=== PATIENT | female | born 2000 | race Caucasian/White ===

== ENCOUNTER 2019-04-30 10:46 | Emergency (ER) | payer SELFPAY ==
[2019-04-30 10:50] VITALS: BP 164/96; PULSE 105; RESP 18; TEMP 36.6; O2SAT 98; BMI 37.1
--- NOTE | 2019-04-30 11:01 | ED_ITS ---
Entered by Aminata Daniels, acting as scribe for Apr 30, 2019 10:46 Documented by User: Krysten Scruggs 04/30/19 14:27 HPI - Abdominal Pain General: Chief Complaint: Abdominal Pain Stated Complaint: Right side pain Time Seen by Provider: 04/30/19 11:03 PFS ED PFSH: Statuses (acute, chronic, etc) shown below reflect problem list status as previously entered and may not be historically accurate Medical History (Updated 04/30/19 @ 14:27 by Krysten Scruggs) Cholelithiasis (Acute) Gastroenteritis (Acute) Social History Smoking and tobacco status: current every day smoker Course Vital Signs: Vital signs: Vital Signs Temperature 97.9 F 04/30/19 10:50 Pulse Rate 66 04/30/19 15:12 Respiratory Rate 18 04/30/19 15:12 Blood Pressure 129/90 04/30/19 15:12 Pulse Oximetry 100 04/30/19 15:12 MDM - Abdominal Pain MDM Narrative: Medical decision making narrative: 1423 -the patient is feeling better at this time. Her ultrasound shows gallstones but no evidence of cholecystitis. Her CT scan shows no sign of acute ureteral lithiasis. The patient has no evidence of UTI so I will discharge her home to have her follow- up with her regular doctor but she also understands this could be developing appendicitis or biliary colic that could become worse. She agrees to return should her symptoms change or worsen in any way. Differential Diagnosis: Differential diagnosis abdominal pain: Likely abdominal pain, acute appendicitis, calculus of kidney, constipation, diverticu litis, endometriosis, gastroenteritis, pancreatitis and small bowel obstruction Lab Data: Attestation: I reviewed the patient's lab results. Labs: Lab Results 04/30/19 04/30/19 04/30/19 Range/Units 11:20 11:20 11:25 WBC 7.3 (4.0-10.0) 10^3/ uL RBC 4.86 (4.1-5.3) 10^6/u L Hgb 12.4 (11.5-15.3) g/dL Hct 38.7 (37.0-47.0) % MCV 79.6 L (81-99) fL MCH 25.5 L (28.0-34.0) pg MCHC 32.0 (30.0-36.0) g/dL RDW 13.9 (12.1-15.1) % Plt Count 390 (130-400) 10^3/c mm MPV 11.0 H (7.4-10.4) fL Neut % (Auto) 54.2 % Lymph % (Auto) 36.5 % [place] % (Auto) 6.0 % Eos % (Auto) 2.5 % Baso % (Auto) 0.7 % Neut # (Auto) 4.0 (1.8-7.7) 10^3/u L Lymph # (Auto) 2.7 (0.8-4.8) 10^3/u L [place] # (Auto) 0.4 (0.2-0.9) 10^3/u L Eos # (Auto) 0.2 (0.0-0.8) 10^3/u L Baso # (Auto) 0.1 (0.0-0.1) 10^3/u L Nucleated RBC % (a uto) 0 % Nucleated RBCs # 0.0 /100WBC Sodium 137 (136-145) mmol/L Potassium 4.1 (3.5-5.1) mmol/L Chloride 102 (98-107) mmol/L Carbon Dioxide 24 (22-29) mmol/L Anion Gap 15.1 (5-19) BUN 11 (6-20) mg/dL Creatinine 0.7 (0.5-0.9) mg/dL GFR Calculation 105.6 (90-130) mL/min Glucose 96 (74-109) mg/dL Calcium 9.8 (8.6-10.0) mg/Dl Total Bilirubin 0.2 (0.15-1.2) mg/dL AST 15 (0-32) U/L ALT 16 (0-33) U/L Alkaline Phosphata se 107 H (35-105) IU/L Total Protein 6.8 (6.6-8.7) g/dL Albumin 4.2 (3.5-5.2) g/dL Globulin 2.6 (1.3-4.6) g/dL Lipase 24 (13-60) U/L HCG, Qual Negative (Negative) Urine Color (Yellow) Urine Appearance (CLEAR) Urine pH (5-7) Ur Specific Gravit y (1.005-1.030) Urine Protein (Negative) Urine Glucose (UA) (Normal) Urine Ketones (Negative) Urine Occult Blood (Negative) Urine Nitrate (Negative) Urine Bilirubin (NEGATIVE) Urine Urobilinogen (Negative) mg/dL Ur Leukocyte Karol ase (Negative) Urine RBC (0-2) /hpf Urine WBC (0-5) /hpf Ur Squamous Epith Cells (0-5) Urine Bacteria (NONE) 04/30/19 Range/Units 11:25 WBC (4.0-10.0) 10^3/ uL RBC (4.1-5.3) 10^6/u L Hgb (11.5-15.3) g/dL Hct (37.0-47.0) % MCV (81-99) fL MCH (28.0-34.0) pg MCHC (30.0-36.0) g/dL RDW (12.1-15.1) % Plt Count (130-400) 10^3/c mm MPV (7.4-10.4) fL Neut % (Auto) % Lymph % (Auto) % [place] % (Auto) % Eos % (Auto) % Baso % (Auto) % Neut # (Auto) (1.8-7.7) 10^3/u L Lymph # (Auto) (0.8-4.8) 10^3/u L [place] # (Auto) (0.2-0.9) 10^3/u L Eos # (Auto) (0.0-0.8) 10^3/u L Baso # (Auto) (0.0-0.1) 10^3/u L Nucleated RBC % (a uto) % Nucleated RBCs # /100WBC Sodium (136-145) mmol/L Potassium (3.5-5.1) mmol/L Chloride (98-107) mmol/L Carbon Dioxide (22-29) mmol/L Anion Gap (5-19) BUN (6-20) mg/dL Creatinine (0.5-0.9) mg/dL GFR Calculation (90-130) mL/min Glucose (74-109) mg/dL Calcium (8.6-10.0) mg/Dl Total Bilirubin (0.15-1.2) mg/dL AST (0-32) U/L ALT (0-33) U/L Alkaline Phosphata se (35-105) IU/L Total Protein (6.6-8.7) g/dL Albumin (3.5-5.2) g/dL Globulin (1.3-4.6) g/dL Lipase (13-60) U/L HCG, Qual (Negative) Urine Color Yellow (Yellow) Urine Appearance Hazy A (CLEAR) Urine pH 6.5 (5-7) Ur Specific Gravit y 1.010 (1.005-1.030) Urine Protein Neg (Negative) Urine Glucose (UA) Norm (Normal) Urine Ketones Negative (Negative) Urine Occult Blood 3+ H (Negative) Urine Nitrate Negative (Negative) Urine Bilirubin Neg (NEGATIVE) Urine Urobilinogen Norm (Negative) mg/dL Ur Leukocyte Karol ase Negative (Negative) Urine RBC 15-25 H (0-2) /hpf Urine WBC 0-4 H (0-5) /hpf Ur Squamous Epith Cells 0-4 H (0-5) Urine Bacteria 2+ H (NONE) Imaging Data ^: CT Abd/Pel: Radiologist's impression: [place] [address] CT Scan Report Signed Patient: Judith Daniels Unit #: [id number] : 2000 Age/Sex: 19 / F ADM Date: 04/30/19 Loc: ER Room/Bed: Attending Dr: Ordering Provider/Ordering MD: Jose Alberto Berry DO Date of Service: 04/30/19 Procedure(s): CT kidney stone 52998 Accession Number(s): [id number] Report Number: [id number] WS: [id number] CT ABDOMEN AND PELVIS NONCONTRAST HISTORY: hematuria flank pain TECHNIQUE: Imaging performed through the abdomen and pelvis. Coronal and sagittal reformats are submitted. All CT scans at [facility] use at least one of these dose optimization techniques: automated exposure control; mA and/or kV adjustment per patient size (includes targeted exams where dose is matched to clinical indication); or iterative reconstruction. DLP: 2122.36 mGy.cm COMPARISON: 04/10/2019 Lower thorax: Mild groundglass attenuation at the lung bases with mild improvement since the prior study. Heart size is normal. Small hiatal hernia. Liver: Normal, no mass or intrahepatic dilatation. Gallbladder: Gallbladder is distended with stones. Stones of various density. Mild wall thickening of the gallbladder is probably due to chronic cholecystitis. No edema or pericholecystic fluid. Pancreas: Normal. Spleen: Normal. Adrenal glands: Normal. Right kidney: Normal size with no stones, masses or atrophy. Left kidney: Normal size with no stones, mass or atrophy. Normal aorta. Retroaortic LEFT renal vein. IVC is normal. No free fluid, intraperitoneal air or significant lymphadenopathy. GI tract: Normal appendix. Mild fecal retention with no GI tract obstruction. No wall thickening or inflammatory changes. Abdominal wall: Intact. Pelvis: No free fluid in the pelvis. Uterus is midline and normal size. Both ovaries are slightly prominent as seen on prior examinations also. Probably containing follicles follicles or small cysts. RIGHT ovary is the largest measuring 4.0 x 2.7 cm. Osseous structures: Unremarkable. CT/CT kidney stone [id number] IMPRESSION: 1. Cholelithiasis without evidence for acute cholecystitis. Gallbladder is markedly distended with stones as on the prior study. Mild wall thickening is probably related to chronic cholecystitis. 2. Normal appendix. 3. No renal stone or obstruction. 4. Near complete resolution basilar pneumonitis as compared to 04/10/2019. Dictated By: Iliana Vela DO Signed By: Iliana Vela DO Signed Date/Time: 04/30/19 1334 DD/ 1327 US: Radiologist's impression: [address] [address] Ultrasound Report Signed Patient: Judith Daniels Unit #: [id number] : 2000 Age/Sex: 19 / F ADM Date: 04/30/19 Loc: ER Room/Bed: Attending Dr: Ordering Provider/Ordering MD: Jose Alberto Berry DO Date of Service: 04/30/19 Procedure(s): US gall bladder 88633 Accession Number(s): [id number] Report Number: [id number] WS: [id number] RIGHT UPPER QUADRANT ULTRASOUND HISTORY: cholelithiasis COMPARISON: 04/10/2019 Liver: 19.8 cm in length. Moderate liver enlargement. No bile duct dilatation. Gallbladder: Shadowing from the gallbladder from stones. Patient has known cholelithiasis. There is adjacent gallbladder wall thickening with no edema. The wall thickening may be chronic. CBD: 3.3 mm Pancreas: Not visualized. Right kidney: 10.6 cm in length. Normal echogenicity with no mass or hydronephrosis. Aorta and IVC: Unremarkable. No ascites. US/ gall bladder [id number] IMPRESSION: 1. Patient has known cholelithiasis. Numerous stones in the gallbladder. No secondary findings of acute cholecystitis. 2. No bile duct dilatation. Dictated By: Iliana Vela DO Signed By: Iliana Vela DO Signed Date/Time: 04/30/19 1238 DD/ 1236 Discharge Plan Discharge Patient Disposition: Home, Self-Care Clinical Impression: Abdominal pain Qualifiers: Abdominal location: right upper quadrant Qualified Code(s): R10.11 - Right upper quadrant pain Condition: Stable Prescriptions: No Action No Known Home Medications RF: 0 Discharge Orders: Discharge Order (Routine); Ordered 04/30/19 Ordered By: Krysten Scruggs Referrals: Shanna Poole MD [Primary Care Provider] - Rupert Waters MD [Physician] - 1-3 days Discharge Diet: Advance as tolerated Discharge Activity: Increase activity as tolerated Patient Instructions: Appendicitis (GEN), Cholecystitis (ED), Abdominal Pain (ED) Activity Restrictions/Additional Instructions: Please return to the ER immediately for any of the signs or symptoms listed on your discharge instruction sheets, worsening/changing of your symptoms, you are not getting better as quickly as expected, or for ANY other cause or concerns. Return for any of the signs or symptoms listed on your discharge instruction sheets, your pain returns or your symptoms change/worsen in any way. Return to the ER tomorrow for recheck to rule out appendicitis as a cause of your pain if you are having any pain at all first thing tomorrow morning. Stand Alone Forms: Work/School Release Discharge Date/Time: 04/30/19 15:13 Sign Out Sign Out Data: Patient Sign Out occurred on 04/30/19 at 13:28. Patient's care was discussed, and care was transferred from Jose Alberto Berry DO to Krysten Scruggs. Sign Out Comment: discussed with Dr. Scruggs. 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 Pt states that she was seen in the ED on and was told that she has gallstones. Pt states that she has had increased abdominal pain. Pt states that she has had nausea for 2 days. Pt states that she has had blood in her urine. MD elicited complaint: abdominal pain and flank pain Pertinent past history: other (gallstones) Onset (ago): day(s) (2) Pain scale (0-10): 10 Radiation: R flank Migration to: no migration Exacerbating factors: eating Relieving factors: nothing Associated Symptoms: Reports hematuria and nausea; Denies chills, coffee ground emesis, constipation, GI cramping, diarrhea, dysuria, fever(s), heartburn, hematochezia, hematemesis, melena, syncope and v omiting Review of Systems General: Reports: 10 or more systems reviewed and unremarkable except in HPI and below Const: Denies: fever or chills Card: Denies: syncope GI: Reports: abdominal pain and nausea; Denies: vomiting, vomiting blood, coffee grounds in vomit, heartburn/indigestion, diarrhea, constipation, cramping, blood in stool or black tarry stool : Reports: flank pain and blood in urine; Denies: painful urination PFSH ED PFSH: Statuses (acute, chronic, etc) shown below reflect problem list status as previously entered and may not be historically accurate Medical History (Updated 04/30/19 @ 14:27 by Krysten Scruggs) Cholelithiasis (Acute) Gastroenteritis (Acute) Social History Smoking and tobacco status: current every day smoker Physical Exam Const: COMMON NORMALS: average body habitus, oriented x3 and alert GENERAL APPEARANCE: cooperative, comfortable, well kempt and well developed NUTRITIONAL APPEARANCE: obese ORIENTATION/CONSCIOUSNESS: Yes awake, Yes oriented to person and Yes oriented to place HENMT: COMMON NORMALS: normocephalic, head/scalp atraumatic, EAC's normal, TM's normal bilaterally, external nose normal, moist oral mucous membranes and oropharynx normal HEAD & SCALP: normocephalic and atraumatic NOSE: external nose normal EXTERNAL AUDITORY CANAL: EAC's normal TYMPANIC MEMBRANE: TM's normal bilaterally MOUTH: oral and palatal mucosa normal, lip normal and tongue normal THROAT: posterior oropharynx normal and tonsils normal Eye: COMMON NORMALS: PERRL, EOMs intact bilaterally, conjunctivae normal and no scleral icterus CONJUNCTIVA: Yes conjunctivae normal PUPIL: Yes PERRL Neck/C-Spine: COMMON NORMALS: full ROM, no lymphadenopathy, supple, no meni ngeal signs and thyroid normal THYROID: thyroid normal and asymmetrical Lymph: LYMPHATIC: no lymphadenopathy noted Resp: COMMON NORMALS: normal respiratory effort, no retractions, no use of accessory muscles and clear to auscultation bilaterally AUSCULTATION: clear to auscultation bilaterally Cardio: COMMON NORMALS: regular rate and regular rhythm RATE: regular rate RHYTHM: regular rhythm HEART SOUNDS: no murmurs GI: COMMON NORMALS: normal to inspection, nondistended, normoactive bowel sounds, soft to palpation and no hepatosplenomegaly PALPATION: Yes soft and Yes no hepatosplenomegaly : COMMON NORMALS: Yes no CVA tenderness BLADDER/KIDNEY EXAM: Yes no CVA tenderness Back/Pelvis: COMMON NORMALS: no CVA tenderness LUMBAR SPINE/LOWER BACK: Yes normal to inspection Extremity: COMMON NORMALS: no clubbing, cyanosis or edema, no calf tenderness and no pedal edema Neuro: COMMON NORMALS: oriented x3 SENSORIUM/ORIENTATION: Yes alert, Yes oriented to person and Yes oriented to place MENINGEAL SIGNS: Yes no meningeal signs Psych: APPEARANCE: Yes well kempt Skin: COMMON NORMALS: no rashes or lesions noted and skin turgor normal GENERAL SKIN EXAM: no rashes or lesions noted and turgor normal Course Vital Signs: Vital signs: Vital Signs Temperature 97.9 F 04/30/19 10:50 Pulse Rate 66 04/30/19 15:12 Respiratory Rate 18 04/30/19 15:12 Blood Pressure 129/90 04/30/19 15:12 Pulse Oximetry 100 04/30/19 15:12 MDM - Abdominal Pain Lab Data: Labs: Lab Results 04/30/19 04/30/19 04/30/19 Range/Units 11:20 11:20 11:25 WBC 7.3 (4.0-10.0) 10^3/ uL RBC 4.86 (4.1-5.3) 10^6/u L Hgb 12.4 (11.5-15.3) g/dL Hct 38.7 (37.0-47.0) % MCV 79.6 L (81-99) fL MCH 25.5 L (28.0-34.0) pg MCHC 32.0 (30.0-36.0) g/dL RDW 13.9 (12.1-15.1) % Plt Count 390 (130-400) 10^3/c mm MPV 11.0 H (7.4-10.4) fL Neut % (Auto) 54.2 % Lymph % (Auto) 36.5 % [place] % (Auto) 6.0 % Eos % (Auto) 2.5 % Baso % (Auto) 0.7 % Neut # (Auto) 4.0 (1.8-7.7) 10^3/u L Lymph # (Auto) 2.7 (0.8-4.8) 10^3/u L [place] # (Auto) 0.4 (0.2-0.9) 10^3/u L Eos # (Auto) 0.2 (0.0-0.8) 10^3/u L Baso # (Auto) 0.1 (0.0-0.1) 10^3/u L Nucleated RBC % (a uto) 0 % Nucleated RBCs # 0.0 /100WBC Sodium 137 (136-145) mmol/L Potassium 4.1 (3.5-5.1) mmol/L Chloride 102 (98-107) mmol/L Carbon Dioxide 24 (22-29) mmol/L Anion Gap 15.1 (5-19) BUN 11 (6-20) mg/dL Creatinine 0.7 (0.5-0.9) mg/dL GFR Calculation 105.6 (90-130) mL/min Glucose 96 (74-109) mg/dL Calcium 9.8 (8.6-10.0) mg/Dl Total Bilirubin 0.2 (0.15-1.2) mg/dL AST 15 (0-32) U/L ALT 16 (0-33) U/L Alkaline Phosphata se 107 H (35-105) IU/L Total Protein 6.8 (6.6-8.7) g/dL Albumin 4.2 (3.5-5.2) g/dL Globulin 2.6 (1.3-4.6) g/dL Lipase 24 (13-60) U/L HCG, Qual Negative (Negative) Urine Color (Yellow) Urine Appearance (CLEAR) Urine pH (5-7) Ur Specific Gravit y (1.005-1.030) Urine Protein (Negative) Urine Glucose (UA) (Normal) Urine Ketones (Negative) Urine Occult Blood (Negative) Urine Nitrate (Negative) Urine Bilirubin (NEGATIVE) Urine Urobilinogen (Negative) mg/dL Ur Leukocyte Karol ase (Negative) Urine RBC (0-2) /hpf Urine WBC (0-5) /hpf Ur Squamous Epith Cells (0-5) Urine Bacteria (NONE) 04/30/19 Range/Units 11:25 WBC (4.0-10.0) 10^3/ uL RBC (4.1-5.3) 10^6/u L Hgb (11.5-15.3) g/dL Hct (37.0-47.0) % MCV (81-99) fL MCH (28.0-34.0) pg MCHC (30.0-36.0) g/dL RDW (12.1-15.1) % Plt Count (130-400) 10^3/c mm MPV (7.4-10.4) fL Neut % (Auto) % Lymph % (Auto) % [place] % (Auto) % Eos % (Auto) % Baso % (Auto) % Neut # (Auto) (1.8-7.7) 10^3/u L Lymph # (Auto) (0.8-4.8) 10^3/u L [place] # (Auto) (0.2-0.9) 10^3/u L Eos # (Auto) (0.0-0.8) 10^3/u L Baso # (Auto) (0.0-0.1) 10^3/u L Nucleated RBC % (a uto) % Nucleated RBCs # /100WBC Sodium (136-145) mmol/L Potassium (3.5-5.1) mmol/L Chloride (98-107) mmol/L Carbon Dioxide (22-29) mmol/L Anion Gap (5-19) BUN (6-20) mg/dL Creatinine (0.5-0.9) mg/dL GFR Calculation (90-130) mL/min Glucose (74-109) mg/dL Calcium (8.6-10.0) mg/Dl Total Bilirubin (0.15-1.2) mg/dL AST (0-32) U/L ALT (0-33) U/L Alkaline Phosphata se (35-105) IU/L Total Protein (6.6-8.7) g/dL Albumin (3.5-5.2) g/dL Globulin (1.3-4.6) g/dL Lipase (13-60) U/L HCG, Qual (Negative) Urine Color Yellow (Yellow) Urine Appearance Hazy A (CLEAR) Urine pH 6.5 (5-7) Ur Specific Gravit y 1.010 (1.005-1.030) Urine Protein Neg (Negative) Urine Glucose (UA) Norm (Normal) Urine Ketones Negative (Negative) Urine Occult Blood 3+ H (Negative) Urine Nitrate Negative (Negative) Urine Bilirubin Neg (NEGATIVE) Urine Urobilinogen Norm (Negative) mg/dL Ur Leukocyte Karol ase Negative (Negative) Urine RBC 15-25 H (0-2) /hpf Urine WBC 0-4 H (0-5) /hpf Ur Squamous Epith Cells 0-4 H (0-5) Urine Bacteria 2+ H (NONE) Imaging Data ^: CT Abd/Pel: Radiologist's impression: Abdomen/Pelvis CT [facility] [address] [place] [address] RADIOLOGY REPORT Patient: JUDITH DANIELS Unit #: [id number] : 2000 Age: 19 Sex: F Ordering Provider: Conrado Cobb DO Room/Bed: Location: ER Dictating Doctor: Jae Rivera MD Report Number: [id number] Signed 04/10/19 - CT Abdomen/Pelvis w IV* [id number] FINAL REPORT PROCEDURE INFORMATION: Exam: CT Abdomen And Pelvis With Contrast Exam date and time: 04/10/2019 11:44 AM Age: 19 years old Clinical indication: Abdominal pain; Generalized; Additional info: Abdominal pain all over x 4 days, fever. N/d TECHNIQUE: Imaging protocol: Computed tomography of the abdomen and pelvis with intravenous contrast. Total DLP: 2066.3 mGy-cm Radiation optimization: All CT scans at this facility use at least one of these dose optimization techniques: automated exposure control; mA and/or kV adjustment per patient size (includes targeted exams where dose is matched to clinical indication); or iterative reconstruction. Contrast material: OMNI 300; Contrast volume: 95 ml; Contrast route: ARM; COMPARISON: No relevant prior studies available. FINDINGS: Lungs: Mild left basilar pneumonitis. Liver: Normal. No mass. Gallbladder and bile ducts: Multiple gallstones within the gallbladder. Pancreas: Normal. No ductal dilation. Spleen: Normal. No splenomegaly. Adrenals: Normal. No mass. Kidneys and ureters: Normal. No hydronephrosis. Stomach and bowel: Unremarkable. No obstruction. No mucosal thickening. Appendix: Normal appendix. Intraperitoneal space: Unremarkable. No free air. No significant fluid collection. Vasculature: Unremarkable. No abdominal aortic aneurysm. Lymph nodes: Unremarkable. No enlarged lymph nodes. Bladder: Unremarkable as visualized. Reproductive: Unremarkable as visualized. Bones/joints: Unremarkable. No acute fracture. Soft tissues: Unremarkable. IMPRESSION: 1. Mild left basilar pneumonitis. 2. Multiple gallstones within the gallbladder. Radiation Dose CTDIVOL = (mGy): DLP = 2066.3 (mGy-cm) Signed By: Jae Rivera MD Signed Date: 04/10/19 1520 Select Visit Select Visit Registration Data Registration Problem List ProblemList Vital Signs Vitals Intake and Output I&O Medications Medications Laboratory Laboratory Microbiology Microbiology Reports and Notes Reports/Notes (selected) US: Radiologist's impression: Gallbladder Ultrasound [address] [address] Diagnostic Imaging Report Patient: JUDITH DANIELS Unit#: [id number] : 2000 Age: 19 Sex: F Dictated by: Gabby Lopez MD Location: ER Trans: [facility] Ordering Provider/Ordering MD: Conrado Cobb DO Room/Bed: Report Number: [id number] Signed 04/10/19 US Gallbladder [id number] US Gallbladder [id number] 04/10/2019 3:23 PM REASON FOR EXAM: ABD PAIN FEVER FINDINGS: Pancreas not seen well. Included portions of the body and head of the pancreas are normal echotexture. Patent inferior vena cava. Liver depth measures 20.6 cm. Echotexture the liver is slightly increased suggestive of mild fatty infiltration. The gallbladder contains numerous shadowing calculi. Normal gallbladder wall thickness at 1.9 mm. Normal size extra hepatic bile duct at 5.8 mm. Antegrade portal venous flow. The abdominal aorta is nonaneurysmal. Right kidney measures 10.7 cm in length length, 6.2 cm in depth and 6.2 cm in width with normal echotexture. OPINION: 1. Cholelithiasis. No ultrasound evidence of cholecystitis. 2. Limited exam of the pancreas. 3. Mild fatty infiltration of the liver. Signed by: Gabby Lopez MD on 04/11/2019 8:43 AM WS: [id number] Select Visit Select Visit Registration Data Registration Problem List ProblemList Vital Signs Vitals Intake and Output I&O Medications Medications Laboratory Laboratory Microbiology Microbiology Reports and Notes Reports/Notes (selected) US GALLBLADDER 04/30/19: Radiologist's impression: [place] [address] Ultrasound Report Signed Patient: Luis Enrique Daniels #: [id number] : 2000Acct#:[id number] Age/Sex: 19 / FADM Date: 04/30/19 Loc: ERRoom/Bed: Attending Dr: Ordering Provider/Ordering MD: Jose Alberto Berry DO Date of Service: 04/30/19 Procedure(s): US gall bladder 30431 Accession Number(s): [id number] Report Number: [id number] WS: [id number] RIGHT UPPER QUADRANT ULTRASOUND HISTORY: cholelithiasis COMPARISON: 04/10/2019 Liver: 19.8 cm in length. Moderate liver enlargement. No bile duct dilatation. Gallbladder: Shadowing from the gallbladder from stones. Patient has known cholelithiasis. There is adjacent gallbladder wall thickening with no edema. The wall thickening may be chronic. CBD: 3.3 mm Pancreas: Not visualized. Right kidney: 10.6 cm in length. Normal echogenicity with no mass or hydronephrosis. Aorta and IVC: Unremarkable. No ascites. US/US gall bladder 54078 IMPRESSION: 1. Patient has known cholelithiasis. Numerous stones in the gallbladder. No secondary findings of acute cholecystitis. 2. No bile duct dilatation. Dictated By:Iliana Vela DO Signed By:Iliana Vela DOSigned Date/Time:04/30/19 1238 DD/ 1236 CT Renal Stone 04/30/19: Radiologist's impression: [address] [place] [address] CT Scan Report Signed Patient: Luis Enrique Daniels #: [id number] : 2000Acct#:[id number] Age/Sex: 19 / FADM Date: 04/30/19 Loc: ERRoom/Bed: Attending Dr: Ordering Provider/Ordering MD: Jose Alberto Berry DO Date of Service: 04/30/19 Procedure(s): CT kidney stone 79607 Accession Number(s): [id number] Report Number: [id number] WS: [id number] CT ABDOMEN AND PELVIS NONCONTRAST HISTORY: hematuria flank pain TECHNIQUE: Imaging performed through the abdomen and pelvis. Coronal and sagittal reformats are submitted. All CT scans at [facility] use at least one of these dose optimization techniques: automated exposure control; mA and/or kV adjustment per patient size (includes targeted exams where dose is matched to clinical indication); or iterative reconstruction. DLP: 2122.36 mGy.cm COMPARISON: 04/10/2019 Lower thorax: Mild groundglass attenuation at the lung bases with mild improvement since the prior study. Heart size is normal. Small hiatal hernia. Liver: Normal, no mass or intrahepatic dilatation. Gallbladder: Gallbladder is distended with stones. Stones of various density. Mild wall thickening of the gallbladder is probably due to chronic cholecystitis. No edema or pericholecystic fluid. Pancreas: Normal. Spleen: Normal. Adrenal glands: Normal. Right kidney: Normal size with no stones, masses or atrophy. Left kidney: Normal size with no stones, mass or atrophy. Normal aorta. Retroaortic LEFT renal vein. IVC is normal. No free fluid, intraperitoneal air or significant lymphadenopathy. GI tract: Normal appendix. Mild fecal retention with no GI tract obstruction. No wall thickening or inflammatory changes. Abdominal wall: Intact. Pelvis: No free fluid in the pelvis. Uterus is midline and normal size. Both ovaries are slightly prominent as seen on prior examinations also. Probably containing follicles follicles or small cysts. RIGHT ovary is the largest measuring 4.0 x 2.7 cm. Osseous structures: Unremarkable. CT/CT kidney stone [id number] IMPRESSION: 1. Cholelithiasis without evidence for acute cholecystitis. Gallbladder is markedly distended with stones as on the prior study. Mild wall thickening is probably related to chronic cholecystitis. 2. Normal appendix. 3. No renal stone or obstruction. 4. Near complete resolution basilar pneumonitis as compared to 04/10/2019. Dictated By:Iliana Vela DO Signed By:Iliana Vela DOSigned Date/Time:04/30/19 1334 DD/ 1327 Discharge Plan Discharge Patient Disposition: Home, Self-Care Clinical Impression: Abdominal pain Qualifiers: Abdominal location: right upper quadrant Qualified Code(s): R10.11 - Right upper quadrant pain Condition: Stable Prescriptions: No Action No Known Home Medications RF: 0 Discharge Orders: Discharge Order (Routine); Ordered 04/30/19 Ordered By: Krysten Scruggs Referrals: Shanna Poole MD [Primary Care Provider] - Rupert Waters MD [Physician] - 1-3 days Discharge Diet: Advance as tolerated Discharge Activity: Increase activity as tolerated Patient Instructions: Appendicitis (GEN), Cholecystitis (ED), Abdominal Pain (ED) Activity Restrictions/Additional Instructions: Please return to the ER immediately for any of the signs or symptoms listed on your discharge instruction sheets, worsening/changing of your symptoms, you are not getting better as quickly as expected, or for ANY other cause or concerns. Return for any of the signs or symptoms listed on your discharge instruction sheets, your pain returns or your symptoms change/worsen in any way. Return to the ER tomorrow for recheck to rule out appendicitis as a cause of your pain if you are having any pain at all first thing tomorrow morning. Stand Alone Forms: Work/School Release Discharge Date/Time: 04/30/19 15:13 Sign Out Sign Out Data: Patient Sign Out occurred on 04/30/19 at 13:28. Patient's care was discussed, and care was transferred from Jose Alberto Berry DO to Krysten Scruggs. Sign Out Comment: discussed with Dr. Scruggs. CT and US pending Last updated by Jose Alberto Berry DO at 04/30/19 13:18 Coding Level of Care Code ED Heat Treater Helper for Chg Fwd Exam Problem Focused The documentation recorded by the Jeremiah sun Carmen, accurately reflects the service I personally performed and the decisions made by me, Jose Alberto Berry DO Apr 30, 2019 10:46
[2019-04-30 11:26] VITALS: RESP 20
[2019-04-30] MEDS: morphine 4 mg/mL SDV 1 mL 6 MG IVP (11:26)
[2019-04-30] MEDS: ondansetron 2 mg/ML SDV 2 mL 4 MG IVP (11:26)
[2019-04-30 11:31] LABS: Basophils # 0.1 10^3/uL (0.0-0.1); Basophils % 0.7 %; Eosinophils # 0.2 10^3/uL (0.0-0.8); Eosinophils % 2.5 %; Hematocrit 38.7 % (37.0-47.0); Hemoglobin 12.4 g/dL (11.5-15.3); Lymphocytes # 2.7 10^3/uL (0.8-4.8); Lymphocytes % 36.5 %; Mean Corpuscular Hemoglobin 25.5 pg (28.0-34.0); Mean Corpuscular Volume 79.6 fL (81-99); Monocytes # 0.4 10^3/uL (0.2-0.9); Neutrophils % 54.2 %; Nucleated Red Blood Cells % 0 %; Platelet Count 390 10^3/cmm (130-400); Red Blood Count 4.86 10^6/uL (4.1-5.3); Red Cell Distribution Width 13.9 % (12.1-15.1); White Blood Count 7.3 10^3/uL (4.0-10.0)
[2019-04-30] MEDS: sodium chloride 0.9% 1,000 ML 999 ML IV (11:33)
[2019-04-30 11:40] LABS: Add Urine Microscopic? YES; Bilirubin Urine Neg (NEGATIVE); Blood Urine 3+ (Negative); Glucose Urine UA Norm (Normal); Ketones Urine Negative (Negative); Leukocyte Esterase Urine Negative (Negative); Nitrate Urine Negative (Negative); Protein Urine Neg (Negative); Urine Appearance Hazy (CLEAR); Urine Color Yellow (Yellow); Urobilinogen Urine Norm (Negative); pH Urine 6.5 (5-7)
[2019-04-30 11:42] LABS: HCG Qualitative Urine. Negative (Negative)
[2019-04-30 11:45] LABS: Alanine Aminotransferase 16 U/L (0-33); Albumin Level 4.2 g/dL (3.5-5.2); Alkaline Phosphatase 107 IU/L (35-105); Anion Gap 15.1 (5-19); Aspartate Amino Transferase 15 U/L (0-32); Blood Urea Nitrogen 11 mg/dL (6-20); Calcium 9.8 mg/Dl (8.6-10.0); Carbon Dioxide 24 mmol/L (22-29); Chloride 102 mmol/L (98-107); Globulin 2.6 g/dL (1.3-4.6); Glomerular Filtration Rate 105.6 mL/min (90-130); Glucose 96 mg/dL (74-109); Lipase 24 U/L (13-60); Potassium 4.1 mmol/L (3.5-5.1); Sodium 137 mmol/L (136-145); Total Bilirubin 0.2 mg/dL (0.15-1.2); Total Protein 6.8 g/dL (6.6-8.7)
[2019-04-30 11:55] LABS: RBC Urine 15-25 /hpf (0-2)
[2019-04-30 11:57] LABS: Bacteria Urine 2+; Squamous Epithelial Cell Urine 0-4 (0-5); WBC Urine 0-4 /hpf (0-5)
[2019-04-30 11:58] LABS: Add Urine Culture? Yes
--- NOTE | 2019-04-30 12:00 | US_ITS ---
WS: [id number] RIGHT UPPER QUADRANT ULTRASOUND HISTORY: cholelithiasis COMPARISON: 04/10/2019 Liver: 19.8 cm in length. Moderate liver enlargement. No bile duct dilatation. Gallbladder: Shadowing from the gallbladder from stones. Patient has known cholelithiasis. There is a djacent gallbladder wall thickening with no edema. The wall thickening may be chronic. CBD: 3.3 mm Pancreas: Not visualized. Right kidney: 10.6 cm in length. Normal echogenicity with no mass or hydronephrosis. Aorta and IVC: Unremarkable. No ascites. US/US gall bladder [id number] IMPRESSION: 1. Patient has known cholelithiasis. Numerous stones in the gallbladder. No se condary findings of acute cholecystitis. 2. No bile duct dilatation.
--- NOTE | 2019-04-30 12:01 | CT_ITS ---
WS: [id number] CT ABDOMEN AND PELVIS NONCONTRAST HISTORY: hematuria flank pain TECHNIQUE: Imaging performed through the abdomen and pelvis. Coronal and sagittal reformats are submi tted. All CT scans at [facility] use at least one of these dose optimization techniques: automated exposure control; mA and/or kV adjustment per patient size (includes targeted exams where d ose is matched to clinical indication); or iterative reconstruction. DLP: 2122.36 mGy.cm COMPARISON: 04/10/2019 Lower thorax: Mild groundglass attenuation at the lung bases with mild improvement since the prior st udy. Heart size is normal. Small hiatal hernia. Liver: Normal, no mass or intrahepatic dilatation. Gallbladder: Gallbladder is distended with stones. Stones of various density. Mild wall thickening of the gallbladder is probably due to chronic cholecystitis. No edema or pericholecystic fluid. Pancreas: Normal. Spleen: Normal. Adrenal glands: Normal. Right kidney: Normal size with no stones, masses or atrophy. Left kidney: Normal size with no stones, mass or atrophy. Normal aorta. Retroaortic LEFT renal vein. IVC is normal. No free fluid, intraperitoneal air or significant lymphadenopathy. GI tract: Normal appendix. Mild fecal retention with no GI tract obstruction. No wall thickening or i nflammatory changes. Abdominal wall: Intact. Pelvis: No free fluid in the pelvis. Uterus is midline and normal size. Both ovaries are slightly pro minent as seen on prior examinations also. Probably containing follicles follicles or small cysts. RI GHT ovary is the largest measuring 4.0 x 2.7 cm. Osseous structures: Unremarkable. CT/CT kidney stone [id number] IMPRESSION: 1. Cholelithiasis without evidence for acute cholecystitis. Gallbladder is mar kedly distended with stones as on the prior study. Mild wall thickening is prob ably related to chronic cholecystitis. 2. Normal appendix. 3. No renal stone or obstruction. 4. Near complete resolution basilar pneumonitis as compared to 04/10/2019.
[2019-04-30 13:42] VITALS: RESP 18
[2019-04-30] MEDS: morphine 4 mg/mL SDV 1 mL 2 MG IVP (13:42)
[2019-04-30] MEDS: ketorolac 30 mg/mL INJ 15 MG IVP (14:58)
[2019-04-30 15:12] VITALS: BP 129/90; PULSE 66; RESP 18; O2SAT 100
--- NOTE | 2019-05-01 10:14 | DCPLANNER ---
client business manager had message to schedule a follow up appointment for patient with [facility]. client business manager called the clinic, spoke with Selina, a follow up appointment is scheduled for April at 9:[address] Waters. Clinic will call patient with appointment information.
--- NOTE | 2019-05-07 14:40 | DCPLANNER ---
Patient attended appointment scheduled for 05.02.19 with [facility].
== END 2019-04-30 15:13 | disposition home or self-care (01) ==
PROVIDERS: Family Medicine; Emergency Provider Emergency Medicine; PCP Family Medicine
DX: R10.11 Right upper quadrant pain (principal); F17.210 Nicotine dependence, cigarettes, uncomplicated
CPT/HCPCS: 74176; 76705; 80053; 81003; 81025; 83690; 85025; 87086; 96360; 96374; 96375; 99282; A9270; J1885; J2270; J2405; J7030

== ENCOUNTER 2019-05-13 16:29 | Observation (INO) | payer SELFPAY ==
[2019-05-10 17:19] VITALS: BMI 37.1
[2019-05-13] VITALS (21 sets, daily range): BP systolic 125–162; BP diastolic 73–103; PULSE 82–113; RESP 13–20; TEMP 36.5–37.1; O2SAT 94–100
[2019-05-13 12:20] LABS: OR HCG Qualitative Urine Negative (Negative)
[2019-05-13] MEDS: sodium chloride 0.9% 1,000 ML 30 ML IV (12:31)
[2019-05-13] MEDS: heparin 5,000 unit/mL INJ 1 mL 3000 UNIT SUBCUT (12:33)
--- NOTE | 2019-05-13 12:55 | PM.HPUD ---
H&P update H&P Update: DATE OF SURGERY/PROCEDURE: 05/13/19 DATE H&P PERFORMED: 05/02/19 H&P UPDATE INFORMATION: H&P completed within last 30 days and No changes to prior documentation PREOP DIAGNOSIS: Symptomatic cholelithiasis PLANNED PROCEDURE: Operation Date: 05/13/19 13:30 Proposed Procedures p Laparoscopic Cholecystectomy(Not Applicable) - Rupert Waters MD Full H&P Medications/Allergies: Current Medications: Current Medications Generic Name Dose Route Start Last Admin Trade Name Freq PRN Reason Stop Dose Admin Sodium Chloride 1,000 mls @ 30 ml s/hr 05/13/19 12:00 05/13/19 12:31 Sodium Chloride 0.9% IV 05/14/19 11:59 30 mls/hr .Q24H RAMONITA Administration Perinent History: Medical/Surgical History: Medical History (Updated 05/08/19 @ 00:00 by ) Cholelithiasis (Acute) Gastroenteritis (Acute) Family History: Family History (Updated 05/02/19 @ 09:25 by Kristie Linares RN) Denies family history of Anesthesia complication Bleeding disorder Social History: Social History Smoking and tobacco status: current every day smoker cigarettes Quit status (tobacco): has tried quititng Second hand smoke exposure: No Alcohol intake: current Alcohol intake frequency: holidays/special occasions only Alcohol type: hard liquor Desire information about alcohol rehabilitation?: No Desire information about substance/drug rehabilitation?: No Adopted: No Caregiver/support person: Yes Lives independently: Yes Household members: spouse Housing: House Marital status: Highest education level completed: High School Graduate service: No Current occupational status: employed 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
--- NOTE | 2019-05-13 12:58 | ANES.PREANES ---
Pre-Anesthetic Assessment Pre-Anesthetic Assessment: Height/Weight: Height 1.68 m Weight 104.326 kg Temp Pulse Resp BP Pulse Ox 97.7 F 88 18 136/81 97 05/13/19 12:48 05/13/19 12:48 05/13/19 12:48 05/13/19 12:48 05/13/19 12:48 Preop Diagnosis: Symptomatic cholelithiasis Proposed Procedure: Operation Date: 05/13/19 13:30 Proposed Procedures p Laparoscopic Cholecystectomy(Not Applicable) - Rupert Waters MD Familial anesthetic complications: No hx of aneshesia, no family trouble Was Beta Idalia taken within 24 hours: N/A Last intake: Intake Last Liquid Date 05/13/19 Last Liquid Time 00:00 Last Solid Date 05/13/19 Last Solid Time 00:00 water at 0800 Social: Social History: No alcohol and No tobacco Exam: Pre-Anes Outpt Exam: alert, oriented x 3, clear to auscultation bilaterally and regular rate & rhythm Airway: Cervical ROM: WNL MP: 3 Dentition: Full Pulmonary: Pulmonary: None reported CV/HEM: CV/HEM: None reported : : None reported Hepatic: Hepatic: None reported GI: GI: None reported Metabolic: Metabolic: Morbid obesity Musc/skel: Musc/skel: None reported Neuropsych: Neuropsych: None reported Anesthetic Plan: ASA status: II Anesthesia: General Risk of > 500 ml blood loss (7ml/kg in children): No Meds/Allergies Current Medications: Current Medications Generic Name Dose Route Start Last Admin Trade Name Freq PRN Reason Stop Dose Admin Sodium Chloride 1,000 mls @ 30 ml s/hr 05/13/19 12:00 05/13/19 12:31 Sodium Chloride 0.9% IV 05/14/19 11:59 30 mls/hr .Q24H RAMONITA Administration PFSH Anesthesia PFSH: Social History Smoking and tobacco status: current every day smoker cigarettes Quit status (tobacco): has tried quititng Second hand smoke exposure: No Alcohol intake: current Alcohol intake frequency: holidays/special occasions only Alcohol type: hard liquor Desire information about alcohol rehabilitation?: No Desire information about substance/drug rehabilitation?: No Adopted: No Caregiver/support person: Yes Lives independently: Yes Household members: spouse Housing: House Marital status: Highest education level completed: High School Graduate service: No Current occupational status: employed 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
[2019-05-13] MEDS: lidocaine 2% INJ 20 mL INJECTION (13:45)
--- NOTE | 2019-05-13 15:13 | P.OP_ITS ---
Operative Report Date of procedure: 05/14/19 Pre-op Diagnosis: Symptomatic cholelithiasis Post-op diagnosis: same Post-op Diagnosis: Acute on top of Chronic calculus cholecystitis With intense fibrosis Procedure Done: Laparoscopic cholecystectomy Implants: 15 Fr Rounded drain Specimens removed/disposition: Gallbladder and contents Surgeon: Rupert Waters Chamber Magistrate: Surgical techs and Samantha Circulating nurses Vaishali VEGA, Justyna and Ebony Anesthesia: General (VICE PRESIDENT SUPPLY CHAIN's Iris and Smart) Estimated blood loss (mL): 20 Findings: Intense fibrotic reaction at the cystic duct and cystic artery Condition: stable Disposition: floor Brief History: Plan of care; After thorough history physical examination and reviewing the chart ,I counseled the patient for laparoscopic cholecystectomy possible open, indications risks including but not limited injury to the common bile duct and other viscera.benefits and alternatives all discussed with the patient, and she did agree to proceed. All questions have been answered and all concerns have been addressed to patient's satisfaction. Informed consent per chart Procedure: Patient was identified in the holding area and taken back to the operative suite, placed in supine position intubated by anesthesia . Time-out was done verifying the patient's name/date of /planned procedure and destination after the procedure, all were in agreement. SCDs confirmed to be functioning, preoperative antibiotics administered per protocol, and beta orlando protocol was confirmed. Patient was appropriately secured to the table, footboard was applied to the OR table, before prep and drape anesthesia was asked to tilt the table back and forth to make sure that the patient is appropriately secured and she was. Prep and drape of the abdomen was done under the usual sterile technique, followed by that supraumbilical skin incision,skin incision was done by a 15 blade knife, and stay sutures were applied to the fascia and Dhaliwal trocar technique was used to enter the abdominal without injuring any abdominal viscera, started by low flow gas insufflation followed by a high flow, started with a 10 mm laparoscope and under direct vision there was no evidence of any injuries, the scope then switched to a 30? ,10 millimeter scope and under direct visualization 5 millimeter trocar was inserted in the epigastric region followed by two 5 mm trocars were inserted in the right upper quadrant that was done after injection of local lidocaine 2% at all incision sites. After positionining the patient in the head up position and tilted to the left : Gallbladder showed acute top of calculus cholecystitis with edema &with adhesions and lots of scar tissues particularly at Valentino's pouch encasing the cystic duct and cystic artery. I elected to aspirate the GB to allow me to hold onto it for better countertraction The dissection started by taking adhesions down using [place] forceps with heat, continued dissection until I identified the critical view of the cystic duct and cystic artery were seen connected to the gallbladder. 3 Clips were applied on the cystic duct towards the common bile duct 1 towards the gallbladder then divided is in sharp scissors, 2 clips were then applied onto the cystic artery and 1 towards the gallbladder and divided by sharp scissors, also an Endoloop PDS was applied onto the cystic artery for extra security, to the surrounding extensive scar surrounding the artery and the clips were not able to traverse the whole part of the diameter of the tissues,additional smaller vessels were identfied and were clipped as well. Dissection was then carried along of the gallbladder from the gallbladder fossa using cautery as well as sharp dissection with heat energy. The gallbladder then was dissected out from the gallbladder fossa totally , cholecystectomy was then achieved and was placed in an Endo Catch bag and then retrieved from the Dhaliwal trocar site under direct visualization using a 5 mm 30? scope through the epigastric trocar, specimen was then passed to the circulating nurse to go for permanent pathology,irrigation and hemostasis was done to the gallbladder fossa after hemostasis was secured, final survey laparoscopy was done that showed no injuries.Thorough irrigation was obtained follwed bu=y suction. The supraumbilical fascial defect was then closed using interrupted Vicryl sutures using a fascial closure device ;Wilmar Pereyra under direct visualization I elected at this point to place a 15 Armenian round Rakesh drain due to the extensive scarring of the gallbladder, which was secured to the skin by 2-0 nylon, then passed through the far outer lateral 5 mm trocar site under direct visualization that was done after closure of the supraumbilical fascial defect. Gas was allowed to deflate,Trocars were then taken out under direct vision there was no evidence of bleeding Specimen was passed to the circulating nurse for permanent pathology. The supraumbilical incision as well as all trocar sites were closed by by 4-0 Monocryl to approximate the skin edges of the supraumbilical incision, dressing was applied in the form of Dermabond and the patient patient got extubated and was taken to recovery area in a stable condition. Count of sponges, needles and instruments were completed at the end of the procedure I was present for the whole entire procedure.
[2019-05-13] MEDS: fentaNYL 50 mcg/mL INJ 2mL IVP ×2 (15:28→15:33)
[2019-05-13] MEDS: morphine 4 mg/mL SDV 1 mL 2 MG IVP ×2 (15:46→16:17)
--- NOTE | 2019-05-13 16:31 | SUR.PHASEI ---
1632 PT BEING HELD IN PACU WHILE WAITING FOR ROOM 264 TO BE CLEANED
[2019-05-13 17:41] LABS: Glucose Point of Care 106 mg/dL (70-110)
[2019-05-13] MEDS: sodium chloride 0.9% 1,000 ML 100 ML IV (17:43)
[2019-05-13] MEDS: HYDROcodone-acetaminophen 5-325 mg Tablet 1 TAB PO (20:24)
[2019-05-14 01:48] LABS: Hematocrit 40.1 % (37.0-47.0); Hemoglobin 12.8 g/dL (11.5-15.3)
[2019-05-14 02:01] LABS: Alanine Aminotransferase 44 U/L (0-33); Albumin Level 4.4 g/dL (3.5-5.2); Alkaline Phosphatase 122 IU/L (35-105); Anion Gap 16.1 (5-19); Aspartate Amino Transferase 48 U/L (0-32); Blood Urea Nitrogen 12 mg/dL (6-20); Calcium 9.5 mg/dL (8.5-10.5); Carbon Dioxide 25 mmol/L (22-29); Chloride 100 mmol/L (98-107); Globulin 3.5 g/dL (1.3-4.6); Glomerular Filtration Rate 90.5 mL/min (90-130); Glucose 129 mg/dL (74-109); Potassium 4.1 mmol/L (3.5-5.1); Sodium 137 mmol/L (136-145); Total Bilirubin 0.2 mg/dL (0.15-1.2); Total Protein 7.9 g/dL (6.6-8.7)
[2019-05-14 03:12] VITALS: RESP 18
[2019-05-14] MEDS: morphine 4 mg/mL SDV 1 mL 2 MG IVP (03:12)
[2019-05-14 03:45] VITALS: BP 121/74; PULSE 78; RESP 18; TEMP 36.7; O2SAT 94
[2019-05-14] MEDS: sodium chloride 0.9% 1,000 ML 100 ML IV (04:49)
--- NOTE | 2019-05-14 05:29 | P.PN_ITS ---
Subjective Subjective: Interval history: Patient did well overnight, patient was kept for observation for pain control No acute events Total bilirubin 0.2 and slightly elevated liver function tests which is expected after extensive dissection and cuterization. Vitals/I&O/Wt Last Vital Signs Temp 98.7 F 05/13/19 22:00 Pulse 101 H 05/13/19 22:00 Resp 18 05/14/19 03:12 BP 133/82 05/13/19 22:00 Pulse Ox 94 05/13/19 22:00 05/13/19 05/13/19 05/14/19 14:59 22:59 06:59 Intake Total 0 / 0 1000 / 1000 Output Total 785 / 785 Balance -785 / -785 1000 / 215 Physical Exam Const: COMMON NORMALS: no apparent distress GENERAL APPEARANCE: cooperative ORIENTATION/CONSCIOUSNESS: Yes awake HENMT: COMMON NORMALS: normocephalic HEAD & SCALP: normocephalic Eye: COMMON NORMALS: PERRL and no scleral icterus PUPIL: Yes PERRL Chest: COMMONS NORMALS: inspection of chest normal Resp: COMMON NORMALS: normal respiratory effort and clear to auscultation bilaterally AUSCULTATION: clear to auscultation bilaterally Cardio: COMMON NORMALS: S1 normal heart sound and S2 normal heart sound; negative for no murmurs HEART SOUNDS: S1 normal and S2 normal GI: COMMON NORMALS: soft to palpation; negative for no hepatosplenomegaly INSPECTION: Yes normal to inspection and Yes other (Incisions are clean dry and intact) PALPATION: Yes soft, No firm, No tender, No guarding, No rigid and No no hepatosplenomegaly OTHER: Right upper quadrant drain serosanguineous Psych: COMMON NORMALS: mental status grossly normal Data : 05/14/19 01:43 05/14/19 01:43 A&P Assessment and plan (1) Cholelithiasis: Advance to soft GI diet, if patient tolerates well will plan to discharge home today and return to surgery office as scheduled. Status: Resolved Code(s): K80.20 - Calculus of gallbladder without cholecystitis without obstruction Attestations Medical Necessity Statement*: Observation status Time Spent in Patient Care: less than 15 minutes (>than 50% of time spent in counselling and/or direct pt care on unit) . Coding Level of Care Code Acute Grades 1 Through 6 Teacher for Chg Fwd Exam Problem Focused Diagnoses Cholelithiasis K80.20
[2019-05-14] MEDS: HYDROcodone-acetaminophen 5-325 mg Tablet 1 TAB PO ×2 (06:06→11:40)
[2019-05-14 07:39] VITALS: PULSE 88; O2SAT 95
[2019-05-14 07:45] VITALS: BP 113/72; PULSE 81; RESP 18; TEMP 36.8; O2SAT 96
[2019-05-14 11:00] VITALS: BP 133/85; PULSE 95; RESP 20; TEMP 36.9; O2SAT 95
--- NOTE | 2019-05-14 11:25 | P.SS_ITS ---
Short Stay Summary Providers Date of Admit/Discharge: 05/14/19 Attending Provider: Rupert Waters MD Primary Care Provider: Rupert Waters MD Chief Complaint: Cholelithiasis K80.20 HPI History of Present Illness Nita Zuniga is a 19 year old female orginally presented as a refferal to my office with symptomatice GB disease. After thorough history physical examination and reviewing the chart ,I counseled the patient for laparoscopic cholecystectomy possible open, indications risks including but not limited injury to the common bile duct and other viscera.benefits and alternatives all discussed with the patient, and she did agree to proceed. All questions have been answered and all concerns have been addressed to pat kayleen's satisfaction. Informed consent per chart Review of Systems Const: Reports: other (feels better) Eyes: Denies: yellow eyes Resp: Denies: shortness of breath GI: Denies: nausea or vomiting Home Meds/Allergies Home Medications and Allergies Home Medications Medication Instructions Recorded Confirmed Type acetaminophen 650 mg 650 mg PO Q8H PRN 05/02/19 05/10/19 History tablet,extended release ibuprofen 200 mg PO Q6H PRN 05/13/19 05/13/19 History Allergies Allergy/AdvReac Type Severity Reaction Status Date / Time No Known Allergies Allergy Verified 05/10/19 17:18 PFSH Acute PFSH: Statuses (acute, chronic, etc) shown below reflect problem list status as previously entered and may not be historically accurate Medical History Cholelithiasis (Resolved) Drain care and teaching Gastroenteritis (Acute) Family History Denies family history of Anesthesia complication Bleeding disorder Social History Smoking and tobacco status: current every day smoker cigarettes Quit status (tobacco): has tried quititng Second hand smoke exposure: No Alcohol intake: current Alcohol intake frequency: holidays/special occasions only Alcohol type: hard liquor Desire information about alcohol rehabilitation?: No Desire information about substance/drug rehabilitation?: No Adopted: No Caregiver/support person: Yes Lives independently: Yes Household members: spouse Housing: House Marital status: Highest education level completed: High School Graduate service: No Current occupational status: employed 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[employer] Current occupational exposures/hazards: No Pets and animals: Yes (outside ) Pets & animals: cat(s) History of recent travel: No Leisure activites: exercise Sexually active: Yes Current gender identity: Female Adelaide/Methodist: Hindu Special adelaide needs: No Agree to transfusion: No Financial difficulty paying for basics: Decline to Answer Female Reporductive History: Date of last menstrual period: 05/09/19 Spontaneous abortions: No Vitals/I&O/Wt Last Vital Signs Temp 98.3 F 05/14/19 07:45 Pulse 81 05/14/19 07:45 Resp 18 05/14/19 07:45 BP 113/72 05/14/19 07:45 Pulse Ox 96 05/14/19 07:45 05/13/19 05/14/19 05/14/19 22:59 06:59 14:59 Intake Total 0 / 0 1000 / 1000 240 / 240 Output Total 785 / 785 2100 / 2885 370 / 370 Balance -785 / -785 -1100 / -1885 -130 / -130 Physical Exam Const: COMMON NORMALS: no apparent distress NUTRITIONAL APPEARANCE: obese Eye: COMMON NORMALS: no scleral icterus Chest: CHEST: Yes symmetrical chest wall rise Resp: COMMON NORMALS: normal respiratory effort and clear to auscultation bilaterally AUSCULTATION: clear to auscultation bilaterally Cardio: COMMON NORMALS: S1 normal heart sound and S2 normal heart sound HEART SOUNDS: S1 normal and S2 normal GI: COMMON NORMALS: soft to palpation INSPECTION: Yes normal to inspection PALPATION: Yes soft, Yes tender (only at the incsison sites) and Yes other (RUQ moshe in place w/o complications/sersanginous output) Hospital Course Admission Diagnoses: symptomatic Cholelithisasis Hospital Course: Overall patient did well,VSS,afebrile and pain undercontrol Tolerated well po and passing gas,will plan to 1. Patient can shower after 48 hours from surgery Plan to DC home today 1. Patient can shower after 48 hours from surgery 2. Remove Dermabond 7 to 10 days after surgery 3. Up and walking as tolerated 4. Do lift more than 5 pounds first 2 weeks after surgery and not more than 25 pounds 6 to 8 weeks after surgery. 5. Do not operate heavy machinery or drive while using pain medications. 6.Contact the office or return to the ER for worsening nausea vomiting fevers or chills, or noticing any redness around incision sites or discharge. 6. Advised to return to ER or contact my office if there are any signs of infection like, increasing pain, fevers, chills, redness or drainage. SSS Data Data Completed and Pending: Pending at discharge Category Date Time Status ES surgery / GI i mages Routine Exams 05/13/19 12:33 Taken Pathology: Surgic al [PTH] Routine Pth 05/13/19 15:11 Ordered Diagnoses at Discharge Discharge Diagnosis (1) Cholelithiasis: Status: Resolved Problem details: Drain care and teaching RTC as scheduled Discharge Plan Discharge Patient Disposition: Home, Self-Care Condition: Stable Prescriptions: [place] 5-325 mg tablet 1 tab PO Q6H PRN (Reason: pain) Qty: 28 RF: 0 Continued acetaminophen [Tylenol 8 Hour] 650 mg tablet extended release 650 mg PO Q8H PRN (Reason: Pain) RF: 0 ibuprofen 200 mg Tablet 200 mg PO Q6H PRN (Reason: Pain) RF: 0 Discharge Orders: Discharge Order (Routine); Ordered 05/14/19 Ordered By: Rupert Waters Referrals: Rupert Waters MD [Primary Care Provider] - 05/16/19 9:00 am Discharge Diet: Advance as tolerated Patient Instructions: Hydrocodone/Acetaminophen (By mouth), Cholecystitis (GEN), Rafat-Kovacs Drain Care (GEN), Laparoscopic Cholecystectomy (DC) Activity Restrictions/Additional Instructions: 1. Patient can shower after 48 hours from surgery 2. Remove Dermabond 7 to 10 days after surgery 3. Up and walking as tolerated 4. Do lift more than 5 pounds first 2 weeks after surgery and not more than 25 pounds 6 to 8 weeks after surgery. 5. Do not operate heavy machinery or drive while using pain medications. 6.Contact the office or return to the ER for worsening nausea vomiting fevers or chills, or noticing any redness around incision sites or discharge. 6. Advised to return to ER or contact my office if there are any signs of infection like, increasing pain, fevers, chills, redness or drainage of pus. Discharge Date/Time: 05/14/19 12:25 Attestations Medical Necessity Statement*: Observation Time Spent in Patient Care*: greater than 30 min Status at Discharge: Cognitive status at discharge: cognitively intact , Behavioral status at discharge: cooperative , Functional status at discharge: independent ambulation Quality Metrics Clinical Quality Measures: During this hospital stay, did patient experience: None Coding Level of Care Code Acute Chemistry Faculty Member for g Fwd Diagnoses Cholelithiasis K80.20
[2019-05-14 11:34] VITALS: BP 133/85; PULSE 95; RESP 20; TEMP 36.9; O2SAT 95
== END 2019-05-14 12:25 | disposition home or self-care (01) ==
LOC: MEDSURG 16:30
PROVIDERS: Admitting Provider Surgery; PCP Surgery; Visit Provider Surgery
PROC: 0FT44ZZ Resection of Gallbladder, Percutaneous Endoscopic Approach (ICD-10-PCS; CPT 47562; principal; 2019-05-13 13:30)
DX: K80.10 Calculus of gallbladder with chronic cholecystitis without obstruction (principal); F17.210 Nicotine dependence, cigarettes, uncomplicated; E66.01 Morbid (severe) obesity due to excess calories; Z68.37 Body mass index [BMI] 37.0-37.9, adult
CPT/HCPCS: 47562; 12345; 36415; 36416; 80053; 81025; 82962; 84703; 85014; 85018; 88304; 96361; 96365; 96372; 96375; G0378; J0131; J0690; J1100; J1644; J2001; J2270; J2405; J2704; J3010; J3490; J7030

== ENCOUNTER 2019-05-16 11:16 | Outpatient (CLI) | payer SELFPAY ==
[2019-05-16 12:00] LABS: Alanine Aminotransferase 60 U/L (0-33); Albumin Level 3.7 g/dL (3.5-5.2); Alkaline Phosphatase 113 IU/L (35-105); Aspartate Amino Transferase 32 U/L (0-32); Globulin 3.9 g/dL (1.3-4.6); Total Bilirubin 0.2 mg/dL (0.15-1.2); Total Protein 7.6 g/dL (6.6-8.7)
== END 2019-05-16 11:17 | disposition home or self-care (01) ==
LOC: LAB 11:19
PROVIDERS: PCP Surgery; Visit Provider Surgery
DX: K76.0 Fatty (change of) liver, not elsewhere classified (principal)
CPT/HCPCS: 80076

== ENCOUNTER 2019-09-19 14:56 | Emergency (ER) | payer SELFPAY ==
--- NOTE | 2019-09-19 15:02 | ED_ITS ---
HPI - Abdominal Pain General: Chief Complaint: Abdominal Pain Stated Complaint: CRAMPING/N/DIZZY/SOB Time Seen by Provider: 09/19/19 15:01 Source: patient Mode of arrival: ambulatory Limitations: no limitations History of Present Illness: HPI narrative: Patient comes in for left upper abdominal cramping and pain. Patient also reports pain going up into her shoulder. Patient appears well. Patient appears in no acute distress. Patient reports some irregularity with her bowel movements being ranging from diarrhea to constipation over the last week. Patient denied any fever or vomiting. Patient appears in no pain. 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 Surgical History S/P laparoscopic cholecystectomy (~04/2019) Family History Denies family history of Anesthesia complication Bleeding disorder Social History Smoking and tobacco status: current every day smoker cigarettes Quit status (tobacco): has tried quititng Second hand smoke exposure: No Alcohol intake: current Alcohol intake frequency: holidays/special occasions only Alcohol type: hard liquor Desire information about alcohol rehabilitation?: No Desire information about substance/drug rehabilitation?: No Adopted: No Caregiver/support person: Yes Lives independently: Yes Household members: spouse Housing: House Marital status: Highest education level completed: High School Graduate service: No Current occupational status: employed 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[employer] Current occupational exposures/hazards: No Pets and animals: Yes (outside ) Pets & animals: cat(s) History of recent travel: No Leisure activites: exercise Sexually active: Yes Current gender identity: Female Adelaide/Temple: Faith Special adelaide needs: No Agree to transfusion: No Financial difficulty paying for basics: Decline to Answer Female Reproductive History: Date of last menstrual period: 05/09/19 Spontaneous abortions: No Physical Exam Const: COMMON NORMALS: no acute distress and patient oriented x3 GENERAL A PPEARANCE: cooperative HENMT: COMMON NORMALS: normocephalic and Normal external nose present HEAD & SCALP: normal to inspection and normocephalic NOSE: Normal external nose present MOUTH: Normal oral and palatal mucosa present Eye: GENERAL EYE: appearance normal, both eyes and all related structures Neck/C-Spine: COMMON NORMALS: full ROM Lymph: LYMPHATIC: no lymphadenopathy noted Chest: COMMONS NORMALS: normal inspection of the chest Resp: COMMON NORMALS: normal respiratory effort EFFORT & INSPECTION: Yes able to speak in complete sentences Cardio: COMMON NORMALS: regular rate and regular rhythm RATE: regular rate RHYTHM: regular rhythm GI: COMMON NORMALS: Soft to palpation PALPATION: Yes Soft to palpation and Yes Tenderness to palpation present (GI) Details: LUQ : COMMON NORMALS: Yes no CVA tenderness BLADDER/KIDNEY EXAM: Yes no CVA tenderness Back/Pelvis: COMMON NORMALS: no CVA tenderness and thoracic and lumbar spine normal to inspection Extremity: COMMON NORMALS: normal to inspection Neuro: COMMON NORMALS: patient oriented x3 and moves all extremities Psych: COMMON NORMALS: mental status grossly normal and cooperative Skin: COMMON NORMALS: no rashes or lesions noted GENERAL SKIN EXAM: no rashes or lesions noted Course Vital Signs: Vital signs: Vital Signs Temperature 98.9 F 09/19/19 15:06 Pulse Rate 95 09/19/19 15:06 Respiratory Rate 18 09/19/19 15:06 Blood Pressure 148/78 09/19/19 15:06 Pulse Oximetry 98 09/19/19 15:06 MDM - Abdominal Pain MDM Narrative: Medical decision making narrative: Patient comes in today for complaints of left side abdominal pain. Exam notes a soft abdomen with normal bowel sounds. Patient does have some mild tenderness in the left abdominal area. No CVA tenderness. No suprapubic tenderness. Skin is warm and dry color is pink. Vital signs are normal. Differential diagnosis includes gastroenteritis, constipation, urinary tract infection, diverticulitis. Urinalysis was clear. CBC noted a mild elevation in the white blood count at 10.9. Reviewed exam with patient recommended treatment for gastroenteritis most likely foodborne. Will treat with Flagyl and dicyclomine. Encourage fluids rest and follow-up as needed. Lab Data: Labs: Lab Results 09/19/19 09/19/19 09/19/19 Range/Units 15:27 15:27 16:14 WBC 10.9 H (4.0-10.0) 10^3/ uL RBC 4.82 (4.1-5.3) 10^6/u L Hgb 13.0 (11.5-15.3) g/dL Hct 40.0 (37.0-47.0) % MCV 83.0 (81-99) fL MCH 27.0 L (28.0-34.0) pg MCHC 32.5 (30.0-36.0) g/dL RDW 14.4 (12.1-15.1) % Plt Count 402 H (130-400) 10^3/c mm MPV 11.4 H (7.4-10.4) fL Neut % (Auto) 63.6 % Lymph % (Auto) 27.6 % [place] % (Auto) 6.8 % Eos % (Auto) 1.1 % Baso % (Auto) 0.5 % Neut # (Auto) 7.0 (1.8-7.7) 10^3/u L Lymph # (Auto) 3.0 (0.8-4.8) 10^3/u L [place] # (Auto) 0.7 (0.2-0.9) 10^3/u L Eos # (Auto) 0.1 (0.0-0.8) 10^3/u L Baso # (Auto) 0.1 (0.0-0.1) 10^3/u L Nucleated RBC % (a uto) 0 % Nucleated RBCs # 0.0 /100WBC Sodium 138 (136-145) mmol/L Potassium 3.8 (3.5-5.1) mmol/L Chloride 104 (98-107) mmol/L Carbon Dioxide 23 (22-29) mmol/L Anion Gap 14.8 (5-19) BUN 12 (6-20) mg/dL Creatinine 0.7 (0.5-0.9) mg/dL GFR Calculation 105.6 (90-130) mL/min Glucose 101 (65-115) mg/dL Calculated Osmolal ity 282 L (285-295) mOsm/k g Calcium 9.3 (8.5-10.5) mg/dL Total Bilirubin 0.2 (0.15-1.2) mg/dL AST 30 (0-32) U/L ALT 33 (0-33) U/L Alkaline Phosphata se 127 H (35-105) IU/L Total Protein 7.2 (6.6-8.7) g/dL Albumin 4.3 (3.5-5.2) g/dL Globulin 2.9 (1.3-4.6) g/dL Urine Color (Yellow) Urine Appearance (CLEAR) Urine pH (5-7) Ur Specific Gravit y (1.005-1.030) Urine Protein (Negative) Urine Glucose (UA) (Normal) Urine Ketones (Negative) Urine Blood (Negative) Urine Nitrate (Negative) Urine Bilirubin (NEGATIVE) Urine Urobilinogen (Negative) mg/dL Ur Leukocyte Karol ase (Negative) Urine HCG, Qual Negative (Negative) 09/19/19 Range/Units 16:14 WBC (4.0-10.0) 10^3/ uL RBC (4.1-5.3) 10^6/u L Hgb (11.5-15.3) g/dL Hct (37.0-47.0) % MCV (81-99) fL MCH (28.0-34.0) pg MCHC (30.0-36.0) g/dL RDW (12.1-15.1) % Plt Count (130-400) 10^3/c mm MPV (7.4-10.4) fL Neut % (Auto) % Lymph % (Auto) % [place] % (Auto) % Eos % (Auto) % Baso % (Auto) % Neut # (Auto) (1.8-7.7) 10^3/u L Lymph # (Auto) (0.8-4.8) 10^3/u L [place] # (Auto) (0.2-0.9) 10^3/u L Eos # (Auto) (0.0-0.8) 10^3/u L Baso # (Auto) (0.0-0.1) 10^3/u L Nucleated RBC % (a uto) % Nucleated RBCs # /100WBC Sodium (136-145) mmol/L Potassium (3.5-5.1) mmol/L Chloride (98-107) mmol/L Carbon Dioxide (22-29) mmol/L Anion Gap (5-19) BUN (6-20) mg/dL Creatinine (0.5-0.9) mg/dL GFR Calculation (90-130) mL/min Glucose (65-115) mg/dL Calculated Osmolal ity (285-295) mOsm/k g Calcium (8.5-10.5) mg/dL Total Bilirubin (0.15-1.2) mg/dL AST (0-32) U/L ALT (0-33) U/L Alkaline Phosphata se (35-105) IU/L Total Protein (6.6-8.7) g/dL Albumin (3.5-5.2) g/dL Globulin (1.3-4.6) g/dL Urine Color Yellow (Yellow) Urine Appearance Clear (CLEAR) Urine pH 5 (5-7) Ur Specific Gravit y 1.020 (1.005-1.030) Urine Protein Neg (Negative) Urine Glucose (UA) Norm (Normal) Urine Ketones Negative (Negative) Urine Blood Neg (Negative) Urine Nitrate Negative (Negative) Urine Bilirubin Neg (NEGATIVE) Urine Urobilinogen Norm (Negative) mg/dL Ur Leukocyte Karol ase Negative (Negative) Urine HCG, Qual (Negative) Discharge Plan Discharge Patient Disposition: Home, Self-Care Clinical Impression: Gastroenteritis Condition: Stable Prescriptions: New metronidazole 500 mg tablet 500 mg PO BID 7 Days Qty: 14 RF: 0 dicyclomine 10 mg capsule 10 mg PO TID PRN (Reason: abdominal pain) Qty: 14 RF: 0 No Action lamotrigine [Lamictal] 25 mg tablet See Rx Instructions PO DAILY Qty: 120 RF: 1 sertraline [Zoloft] 25 mg tablet 50 mg PO DAILY MDD 50 mg Qty: 60 RF: 0 ibuprofen 200 mg Tablet 200 - 600 mg PO PRN RF: 0 Tylenol Extra Strength 500 mg Tablet 500 - 1,000 mg PO PRN RF: 0 Multivitamins 28 mg iron- 800 mcg Tablet 1 tab PO DAILY RF: 0 Conceiveeasy 1 tab PO DAILY RF: 0 Discharge Orders: Discharge Order (Routine); Ordered 09/19/19 Ordered By: Justice Albert Discharge Diet: Usual diet Discharge Activity: Increase activity as tolerated Patient Instructions: Gastroenteritis (ED) Activity Restrictions/Additional Instructions: Drink plenty of fluids. Take medication as directed for pain and infection. Healthy diet and activity. Follow-up with primary care in 1 week. Return to the ER for high fever or worsening symptoms. Coding Level of Care Code ED Quality Assurance Group Leader for Kiet Fwgonzalo Exam Comprehensive
[2019-09-19 15:06] VITALS: BP 148/78; PULSE 95; RESP 18; TEMP 37.2; O2SAT 98; BMI 39.5
[2019-09-19 15:43] LABS: Basophils # 0.1 10^3/uL (0.0-0.1); Basophils % 0.5 %; Eosinophils # 0.1 10^3/uL (0.0-0.8); Eosinophils % 1.1 %; Lymphocytes % 27.6 %; Mean Corpuscular HGB Conc 32.5 g/dL (30.0-36.0); Mean Platelet Volume 11.4 fL (7.4-10.4); Monocytes # 0.7 10^3/uL (0.2-0.9); Monocytes % 6.8 %; Neutrophils % 63.6 %; Nucleated Red Blood Cells % 0 %; Platelet Count 402 10^3/cmm (130-400); Red Blood Count 4.82 10^6/uL (4.1-5.3); Red Cell Distribution Width 14.4 % (12.1-15.1); White Blood Count 10.9 10^3/uL (4.0-10.0)
[2019-09-19 15:58] LABS: Alanine Aminotransferase 33 U/L (0-33); Albumin Level 4.3 g/dL (3.5-5.2); Alkaline Phosphatase 127 IU/L (35-105); Anion Gap 14.8 (5-19); Aspartate Amino Transferase 30 U/L (0-32); Blood Urea Nitrogen 12 mg/dL (6-20); Calcium 9.3 mg/dL (8.5-10.5); Carbon Dioxide 23 mmol/L (22-29); Chloride 104 mmol/L (98-107); Globulin 2.9 g/dL (1.3-4.6); Glomerular Filtration Rate 105.6 mL/min (90-130); Glucose 101 mg/dL (65-115); Osmolality Calculated 282 mOsm/kg (285-295); Potassium 3.8 mmol/L (3.5-5.1); Sodium 138 mmol/L (136-145); Total Bilirubin 0.2 mg/dL (0.15-1.2); Total Protein 7.2 g/dL (6.6-8.7)
[2019-09-19 16:24] LABS: Add Urine Microscopic? NO
[2019-09-19 16:27] LABS: Bilirubin Urine Neg (NEGATIVE); Blood Urine Neg (Negative); Glucose Urine UA Norm (Normal); Ketones Urine Negative (Negative); Leukocyte Esterase Urine Negative (Negative); Nitrate Urine Negative (Negative); Protein Urine Neg (Negative); Urine Appearance Clear (CLEAR); Urine Color Yellow (Yellow); Urobilinogen Urine Norm (Negative); pH Urine 5 (5-7)
[2019-09-19 16:38] VITALS: BP 126/73; PULSE 98; RESP 16; O2SAT 96
== END 2019-09-19 16:39 | disposition home or self-care (01) ==
PROVIDERS: Emergency Provider Nurse Practitioner Family
DX: K52.9 Noninfective gastroenteritis and colitis, unspecified (principal); F17.210 Nicotine dependence, cigarettes, uncomplicated
CPT/HCPCS: 12345; 36415; 80053; 81003; 81025; 85025; 99282; 99283

== ENCOUNTER 2019-10-07 12:25 | Emergency (ER) | payer SELFPAY ==
[2019-10-07 12:35] VITALS: BP 117/72; PULSE 92; RESP 17; TEMP 36.6; O2SAT 97; BMI 39.5
--- NOTE | 2019-10-07 13:07 | W.ED.GENADLT ---
HPI - General Adult General: Chief complaint: General Medical Stated complaint: needs ring removed from finger Time Seen by Provider: 10/07/19 12:46 History of Present Illness: HPI narrative: Nita is a nice 19-year-old female who comes in requesting that she have a ring removed from her left ring finger. The patient states that she has had some increased swelling and she needs to get the ring off. She is requesting it be cut to be removed. She denies any distal numbness, tingling or weakness. She denies any injury to the finger. 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 Surgical History S/P laparoscopic cholecystectomy (~04/2019) Family History Denies family history of Anesthesia complication Bleeding disorder Social History Smoking and tobacco status: current every day smoker cigarettes Quit status (tobacco): has tried quititng Second hand smoke exposure: No Alcohol intake: current Alcohol intake frequency: holidays/special occasions only Alcohol type: hard liquor Desire information about alcohol rehabilitation?: No Desire information about substance/drug rehabilitation?: No Adopted: No Caregiver/support person: Yes Lives independently: Yes Household members: spouse Housing: House Marital status: Highest education level completed: High School Graduate service: No Current occupational status: employed 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 Course Vital Signs: Vital signs: Vital Signs Temperature 97.8 F 10/07/19 12:35 Pulse Rate 80 10/07/19 13:18 Respiratory Rate 18 10/07/19 13:18 Blood Pressure 127/96 10/07/19 13:18 Pulse Oximetry 97 10/07/19 13:18 MDM - General Adult MDM Narrative: Medical decision making narrative: Patient never had any neurovascular compromise. Her ring was removed without any incident. Patient states she feels better now with less pressure. She will follow-up with her doctor. Discharge Plan Discharge Patient Disposition: Home, Self-Care Clinical Impression: Foreign body Condition: Stable Prescriptions: No Action lamotrigine [Lamictal] 25 mg tablet See Rx Instructions PO DAILY Qty: 120 RF: 1 sertraline [Zoloft] 25 mg tablet 50 mg PO DAILY MDD 50 mg Qty: 60 RF: 0 ibuprofen 200 mg Tablet 200 - 600 mg PO PRN RF: 0 Tylenol Extra Strength 500 mg Tablet 500 - 1,000 mg PO PRN RF: 0 Multivitamins 28 mg iron- 800 mcg Tablet 1 tab PO DAILY RF: 0 Conceiveeasy 1 tab PO DAILY RF: 0 dicyclomine 10 mg capsule 10 mg PO TID PRN (Reason: abdominal pain) Qty: 14 RF: 0 Discharge Orders: Discharge Order (Routine); Ordered 10/07/19 Ordered By: Krysten Scruggs Discharge Diet: Usual diet Discharge Activity: Resume usual activity Activity Restrictions/Additional Instructions: Please return to the ER immediately for any of the signs or symptoms listed on your discharge instruction sheets, worsening/changing of your symptoms, you are not getting better as quickly as expected, or for ANY other cause or concerns. Return to the ER for increased pain or for any other cause for concern. Discharge Date/Time: 10/07/19 13:18 Coding Level of Care Code ED Armed Security Guard for Kiet Wetzel
[2019-10-07 13:18] VITALS: BP 127/96; PULSE 80; RESP 18; O2SAT 97
== END 2019-10-07 13:18 | disposition home or self-care (01) ==
PROVIDERS: Emergency Provider Emergency Medicine
DX: S60.445A External constriction of left ring finger, initial encounter (principal); W49.04XA Ring or other jewelry causing external constriction, initial encounter; F17.210 Nicotine dependence, cigarettes, uncomplicated
CPT/HCPCS: 12345; 99281

== ENCOUNTER 2019-11-16 20:59 | Emergency (ER) | payer SELFPAY ==
[2019-11-16 21:12] VITALS: BP 127/80; PULSE 80; RESP 15; TEMP 36.3; O2SAT 97; BMI 39.5
--- NOTE | 2019-11-16 21:32 | ED_ITS ---
HPI - Abdominal Pain General: Chief Complaint: Abdominal Pain Stated Complaint: side pain and abd bloating Time Seen by Provider: 11/16/19 21:23 History of Present Illness: HPI narrative: This patient is a 19-year-old female presenting with abdominal pain. She describes a sharp, cramping pain in both upper quadrants and indicates both flanks. This is been going on for 1 or 2 weeks. She has had intermittent diarrhea and constipation. She has had some vomiting she notes every morning. She denies fever but has had some chills. She denies urinary symptoms but notes she is urinating more frequently than usual. She denies cough or shortness of breath. She has not noticed that it gets worse after she eats. She says the pain is similar to when she had gallstones prior to having her gallbladder removed. MD elicited complaint: abdominal pain and flank pain Onset (ago): week(s) (2) Pain Consistency: intermittent Location: Epigastric, LUQ and RUQ Severity: similar to previous episodes (Patient was seen in September for similar symptoms according to the chart, when I asked her about that she said this is different.) Quality: cramping and sharp Radiation: LUQ, RUQ and epigastric Migration to: no migration Exacerbating factors: nothing Relieving factors: nothing Associated Symptoms: Reports chills, constipation, diarrhea, nausea and vomiting; Denies dysuria and fever(s) Related Data: Date of Last Menstrual Period: 11/10/19 Review of Systems General: Reports: 10 or more systems reviewed and unremarkable except in HPI and below Const: Reports: chills; Denies: fever(s), fatigue or malaise Eyes: Denies: change in vision ENMT: Denies: odynophagia Card: Denies: chest pain or swelling of feet/ankles Resp: Denies: dyspnea, productive cough or non-productive cough GI: Reports: abdominal pain, nausea, vomiting, diarrhea and constipation : Reports: urinary frequency and other (Periods are irregular, she is not sure when her last one was.); Denies: flank pain, difficulty voiding, dysuria or urinary urgency Musc: Denies: neck pain or back pain Skin/Breast: Denies: rash Neuro: Denies: headache(s), numbness in extremities or weakness in extremities Max/Lymph: Denies: easy bruising or easy bleeding PFSH ED PFSH: Medical History Anxiety disorder Cholelithiasis Drain care and teaching RTC as scheduled Chronic posttraumatic stress disorder Gastroenteritis Mood and affect disturbance 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 Surgical History S/P laparoscopic cholecystectomy (~04/2019) Family History Denies family history of Anesthesia complication Bleeding disorder Social History Smoking and tobacco status: current every day smoker cigarettes Quit status (tobacco): has tried quititng Second hand smoke exposure: No Alcohol intake: current Alcohol intake frequency: holidays/special occasions only Alcohol type: hard liquor Desire information about alcohol rehabilitation?: No Desire information about substance/drug rehabilitation?: No Adopted: No Caregiver/support person: Yes Lives independently: Yes Household members: spouse Housing: House Marital status: Highest education level completed: High School Graduate service: No Current occupational status: employed 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 Current occupational exposures/hazards: No Pets and animals: Yes (outside ) Pets & animals: cat(s) History of recent travel: No Leisure activites: exercise Sexually active: Yes Current gender identity: Female Adelaide/Faith: Latter Day Special adelaide needs: No Agree to transfusion: No Financial difficulty paying for basics: Decline to Answer Female Reproductive History: Date of last menstrual period: 11/10/19 Spontaneous abortions: No Physical Exam Const: COMMON NORMALS: no acute distress, patient oriented x3, no limitations and alert GENERAL APPEARANCE: cooperative, comfortable and other (Poorly kempt) NUTRITIONAL APPEARANCE: obese HENMT: HEAD & SCALP: normal to inspection FACE & SINUS: normal facial exam Eye: GENERAL EYE: appearance normal, both eyes and all related structures Neck/C-Spine: COMMON NORMALS: supple, no meningeal signs and no JVD Chest: COMMONS NORMALS: normal inspection of the chest Resp: COMMON NORMALS: normal respiratory effort, No use of accessory muscles and clear to auscultation bilaterally AUSCULTATION: clear to auscultation bilaterally Cardio: COMMON NORMALS: no JVD, regular rate, regular rhythm and No murmurs present (Cardio) RATE: regular rate RHYTHM: regular rhythm GI: COMMON NORMALS: Normal to inspection, nondistended, normoactive bowel sounds present INSPECTION: Yes normal to inspection AUSCULTATION: Yes normoactive bowel sounds PALPATION: Yes Tenderness to palpation present (GI) and Yes Guarding due to palpation present (GI) Back/Pelvis: COMMON NORMALS: thoracic and lumbar spine normal to inspection Extremity: COMMON NORMALS: normal to inspection Neuro: COMMON NORMALS: patient oriented x3, moves all extremities, no focal motor deficits and no sensory deficits noted SENSORIUM/ORIENTATION: Yes alert MENINGEAL SIGNS: Yes no meningeal signs Psych: COMMON NORMALS: mental status grossly normal, cooperative and normal affect Skin: COMMON NORMALS: no rashes or lesions noted and turgor normal GENERAL SKIN EXAM: no rashes or lesions noted and turgor normal Course ED course: Repeated episodes of similar abdominal pain. Work-ups have been negative. Symptomatic treatment and outpatient follow-up. Vital Signs: Vital signs: Vital Signs Temperature 97.3 F L 11/16/19 21:12 Pulse Rate 80 11/16/19 21:12 Respiratory Rate 18 11/16/19 21:59 Blood Pressure 127/80 11/16/19 21:12 Pulse Oximetry 97 11/16/19 21:12 MDM - Abdominal Pain Lab Data: Labs: Lab Results 11/16/19 11/16/19 Range/Units 21:35 21:35 HCG, Qual Negative (Negative) Urine Color Yellow (Yellow) Urine Appearance Sl hazy (CLEAR) Urine pH 5 (5-7) Ur Specific Gravit y 1.020 (1.005-1.030) Urine Protein Neg (Negative) Urine Glucose (UA) Norm (Normal) Urine Ketones Negative (Negative) Urine Blood 2+ H (Negative) Urine Nitrate Negative (Negative) Urine Bilirubin Neg (NEGATIVE) Urine Urobilinogen Norm (Negative) mg/dL Ur Leukocyte Karol ase Negative (Negative) Urine RBC 0-4 H (0-2) /hpf Urine WBC 5-10 H (0-5) /hpf Ur Squamous Epith Cells 5-10 H (0-5) Amorphous Sediment Not Reportable Urine Bacteria Trace (NONE) Hyaline Casts 0-4 H Urine Mucus 2+ Discharge Plan Discharge Patient Disposition: Home Clinical Impression: Abdominal pain Qualifiers: Abdominal location: generalized Qualified Code(s): R10.84 - Generalized abdominal pain Condition: Stable Prescriptions: No Action lamotrigine [Lamictal] 25 mg tablet See Rx Instructions PO DAILY Qty: 120 RF: 1 sertraline [Zoloft] 25 mg tablet 50 mg PO DAILY MDD 50 mg Qty: 60 RF: 0 ibuprofen 200 mg Tablet 200 - 600 mg PO PRN RF: 0 Tylenol Extra Strength 500 mg Tablet 500 - 1,000 mg PO PRN RF: 0 Multivitamins 28 mg iron- 800 mcg Tablet 1 tab PO DAILY RF: 0 Conceiveeasy 1 tab PO DAILY RF: 0 dicyclomine 10 mg capsule 10 mg PO TID PRN (Reason: abdominal pain) Qty: 14 RF: 0 Discharge Orders: Discharge Order (Routine); Ordered 11/16/19 Ordered By: Nicol Mendoza Discharge Diet: Usual diet Discharge Activity: Resume usual activity Patient Instructions: Abdominal Pain (ED) Activity Restrictions/Additional Instructions: Eat a healthy diet including fiber on a daily basis. Drink plenty of fluids. Follow-up with your primary care doctor for further evaluation of your symptoms. Return to the emergency department if new or worse symptoms occur. Discharge Date/Time: 11/16/19 22:55 Coding Level of Care Code ED Education Program Coordinator for Kiet Wetzel Exam Comprehensive
[2019-11-16 21:49] LABS: HCG Qualitative Urine. Negative (Negative)
[2019-11-16 21:53] LABS: Urine Appearance SL Hazy (CLEAR); Urine Color Yellow (Yellow); pH Urine 5 (5-7)
[2019-11-16 21:54] LABS: Add Urine Microscopic? YES; Bilirubin Urine Neg (NEGATIVE); Blood Urine 2+ (Negative); Glucose Urine UA Norm (Normal); Ketones Urine Negative (Negative); Leukocyte Esterase Urine Negative (Negative); Nitrate Urine Negative (Negative); Protein Urine Neg (Negative); Urobilinogen Urine Norm (Negative)
[2019-11-16 21:55] LABS: RBC Urine 0-4 /hpf (0-2)
[2019-11-16 21:56] LABS: Add Urine Culture? No; Bacteria Urine TRACE; Hyaline Casts Urine 0-4; Mucus Urine 2+
[2019-11-16 21:59] VITALS: RESP 18
--- NOTE | 2019-11-16 22:06 | XRR_ITS ---
PROCEDURE INFORMATION: Exam: XR Complete Acute Abdomen Series Exam date and time: 11/16/2019 10:34 PM Age: 19 years old Clinical indication: Abdominal pain; Generalized; Prior surgery; Surgery date: 1-6 months; Surgery type: Gb TECHNIQUE: Imaging protocol: XR complete acute abdomen series, including 2 or more views of the abdomen and a single view chest. COMPARISON: No relevant prior studies available. FINDINGS: Lungs: Normal. No consolidation. Pleural space: Normal. No pneumothorax. Heart/Mediastinum: Normal. No cardiomegaly. Gastrointestinal tract: Normal. No bowel dilation. Intraperitoneal space: Cholecystectomy clips. Clips in the pelvis. Bones/joints: Normal. No acute fracture. Soft tissues: Normal. XR/XR acute abdomen series [id number] IMPRESSION: No acute findings.
== END 2019-11-16 22:55 | disposition home or self-care (01) ==
PROVIDERS: Emergency Provider Emergency Medicine
DX: R10.84 Generalized abdominal pain (principal); F17.210 Nicotine dependence, cigarettes, uncomplicated
CPT/HCPCS: 12345; 74022; 81001; 81003; 81025; 99282; 99283

== ENCOUNTER → 2020-03-03 09:00 | Outpatient (BNVA) | payer OTHER, SELFPAY | PROVIDERS: Visit Provider Nurse Practitioner Family | DX: Z20.828 Contact with and (suspected) exposure to other viral communicable diseases (principal) | CPT/HCPCS: 87635 ==

== ENCOUNTER 2021-02-14 10:39 | Emergency (ER) | payer MEDICAID, SELFPAY ==
[2021-02-14 10:53] VITALS: BP 154/96; PULSE 94; RESP 20; TEMP 37.2; O2SAT 95; BMI 53.2
--- NOTE | 2021-02-14 10:53 | W.ED.ABDPA2 ---
HPI - Abdominal Pain General: Chief Complaint: Abdominal Pain Stated Complaint: LOWER ABD PAIN Time Seen by Provider: 02/14/21 10:53 History of Present Illness: HPI narrative: Ms. Zuniga is a 22-year-old lady without significant medical history presents emerged department due to abdominal pain. She woke up with symptoms yesterday and does not recall any specific inciting event. She has aching and difficulty describing the character of her pain however it is mostly across the mid abdomen. There is some radiation down to the suprapubic region. She has mild generalized malaise. Symptoms are worse with palpation and movement. She denies associated dysuria. She is having normal bowel movements. She has nausea but no vomiting. Last menstrual cycle was 01/09 however she does report a history of PCOS and irregular periods. No abnormal vaginal bleeding or discharge. No other specific exacerbating or relieving factors identified. No similar problems in the past. 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 Surgical History S/P laparoscopic cholecystectomy (~04/2019) Family History Denies family history of Anesthesia complication Bleeding disorder Social History Smoking and tobacco status: current every day smoker cigarettes Quit status (tobacco): has tried quititng Second hand smoke exposure: No Alcohol intake: current Alcohol intake frequency: holidays/special occasions only Alcohol type: hard liquor Desire information about alcohol rehabilitation?: No Desire information about substance/drug rehabilitation?: No Adopted: No Caregiver/support person: Yes Lives independently: Yes Household members: spouse Housing: House Marital status: Highest education level completed: High School Graduate service: No Current occupational status: employed 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 somewhat uncortable due to pain Eyes -no scleral icterus, no conjunctival injection ENMT - Atraumatic external nose and ears. Moist mucous membranes NECK - supple. trachea midline CARDIOVASCULAR - regular rate and rhythm. Peripheral pulses 2+ and equal RESPIRATORY -clear to auscultation bilaterally. ABDOMEN/GI -mid abdominal and suprapubic tenderness palpation, mild tenderness to percussion without evidence of sangeetha or remote peritonitis. MSK - Extremities without obvious deformity or tenderness to palpation SKIN - Warm, Dry NEURO - alert and appropriately oriented. Moves all extremities equally. Course ED course: - Patient was seen and evaluated by me at bedside - Patient placed on cardiac monitors, IV access obtained - Initial evaluation notable for exam as noted above, nontoxic. -Symptom treatment ordered - Labs notable for no leukocytosis, no significant metabolic abnormalities to explain patient's symptoms. Urinalysis not concerning for urinary tract infection. - Imaging notable for no acute finding on CT to explain the patient's symptoms. -Pelvic exam performed with mining teacher present. Physiologic appearing discharge without other abnormality on external and speculum exam. Right adnexal tenderness without palpable mass. wet prep negative. Given this finding ultrasound warranted. Ultrasound negative for acute finding to explain patient's symptoms. - Upon serial reexamination after treatment the patient was mildly improved with symptom treatment - Based on patient history, evaluation, labs, and imaging as interpreted the most likely cause of the patient's condition is unspecified abdominal pain - The results of ED evaluation were discussed with the patient including prescriptions and/or symptomatic cares (if applicable) including appropriate and responsible use, followup plan, and return precautions. The patient verbalized understanding and felt safe for discharge. - Patient discharged in satisfactory condition. Vital Signs: Vital signs: Vital Signs Temperature 98.9 F 02/14/21 10:53 Pulse Rate 76 02/14/21 16:50 Respiratory Rate 18 02/14/21 16:50 Blood Pressure 122/66 10/31/21 16:50 Pulse Oximetry 96 02/14/21 16:50 MDM - Abdominal Pain Medical Records: Attestation: I reviewed the patient's medical records. Lab Data: Attestation: I reviewed the patient's lab results. Labs: Lab Results 02/14/21 02/14/21 02/14/21 12:34 12:34 12:34 WBC 8.2 10^3/uL 10^3/ uL (4.0-10.0) RBC 5.05 10^6/uL 10^6 /uL (4.1-5.3) Hgb 13.8 g/dL g/dL (11.5-15.3) Hct 43.4 % % (37.0-47.0) MCV 85.9 fl fl (81-99) MCH 27.3 pg L pg (28.0-34.0) MCHC 31.8 g/dL g/dL (30.0-36.0) RDW 13.0 % % (12.1-15.1) Plt Count 381 10^3/cmm 10^3 /cmm (130-400) MPV 11.1 fL H fL (7.4-10.4) Neut % (Auto) 55.5 % % Lymph % (Auto) 35.6 % % Meriwether % (Auto) 6.6 % % Eos % (Auto) 1.2 % % Baso % (Auto) 0.7 % % Neut # (Auto) 4.58 10^3/uL 10^3 /uL (1.8-7.7) Lymph # (Auto) 2.9 10^3/uL 10^3/ uL (0.8-4.8) Meriwether # (Auto) 0.5 10^3/uL 10^3/ uL (0.2-0.9) Eos # (Auto) 0.1 10^3/uL 10^3/ uL (0.0-0.8) Baso # (Auto) 0.1 10^3/uL 10^3/ uL (0.0-0.1) Nucleated RBC % (a uto) 0 % % Nucleated RBCs # 0.0 /100WBC /100W BC Sodium 138 mmol/L mmol/L (136-145) Potassium 4.2 mmol/L mmol/L (3.5-5.1) Chloride 102 mmol/L mmol/L (98-107) Carbon Dioxide 28 mmol/L mmol/L (22-29) Anion Gap 12.2 (5-19) BUN 11 mg/dL mg/dL (6-20) Creatinine 0.5 mg/dL mg/dL (0.5-0.9) GFR Calculation 152.9 mL/min H mL /min (90-130) Glucose 94 mg/dL mg/dL (65-115) Calculated Osmolal ity 285 mOsm/kg mOsm/ kg (285-295) Calcium 9.2 mg/dL mg/dL (8.5-10.5) Total Bilirubin 0.2 mg/dL mg/dL (0.15-1.2) AST 17 U/L U/L (0-32) ALT 20 U/L U/L (0-33) Alkaline Phosphata se 116 IU/L H IU/L (35-105) Total Protein 7.3 g/dL g/dL (6.6-8.7) Albumin 4.1 g/dL g/dL (3.5-5.2) Globulin 3.2 g/dL g/dL (1.3-4.6) Lipase 21 U/L U/L (13-60) HCG, Qual Negative (Negative) Urine Color Urine Appearance Urine pH Ur Specific Gravit y Urine Protein Urine Glucose (UA) Urine Ketones Urine Blood Urine Nitrate Urine Bilirubin Urine Urobilinogen Ur Leukocyte Karol ase Urine RBC Urine WBC Ur Squamous Epith Cells Amorphous Sediment Urine Bacteria 02/14/21 12:34 WBC RBC Hgb Hct MCV MCH MCHC RDW Plt Count MPV Neut % (Auto) Lymph % (Auto) Meriwether % (Auto) Eos % (Auto) Baso % (Auto) Neut # (Auto) Lymph # (Auto) Meriwether # (Auto) Eos # (Auto) Baso # (Auto) Nucleated RBC % (a uto) Nucleated RBCs # Sodium Potassium Chloride Carbon Dioxide Anion Gap BUN Creatinine GFR Calculation Glucose Calculated Osmolal ity Calcium Total Bilirubin AST ALT Alkaline Phosphata se Total Protein Albumin Globulin Lipase HCG, Qual Urine Color Yellow (Yellow) Urine Appearance Cloudy (CLEAR) Urine pH 6 (5-7) Ur Specific Gravit y 1.020 (1.005-1.030) Urine Protein Neg (Negative) Urine Glucose (UA) Norm (Normal) Urine Ketones Negative (Negative) Urine Blood Neg (Negative) Urine Nitrate Negative (Negative) Urine Bilirubin Neg (Negative) Urine Urobilinogen Norm mg/dL mg/dL (Negative) Ur Leukocyte Karol ase Negative (Negative) Urine RBC None /hpf /hpf (0-2) Urine WBC None /hpf /hpf (0-5) Ur Squamous Epith Cells 0-4 /hpf H /hpf (0-5) Amorphous Sediment Not Reportable Urine Bacteria None /hpf /hpf (NONE) Discharge Plan Discharge Patient Disposition: Home Clinical Impression: Abdominal pain, Nausea and vomiting, Diarrhea Condition: Stable Prescriptions: New ondansetron 4 mg tablet,disintegrating 4 mg PO DAILY PRN (Reason: nausea and vomiting) 5 Days Qty: 15 RF: 0 Discharge Orders: Discharge ED (Routine); Ordered 02/14/21 Ordered By: Keshav Swenson Discharge Diet: Advance as tolerated and Clear Liquid Discharge Activity: Increase activity as tolerated Patient Instructions: Abdominal Pain (ED), Opioid Safety Activity Restrictions/Additional Instructions: Thank you for visiting the emergency department. You were seen and evaluated for abdominal pain with nausea, vomiting, and diarrhea. The exact cause of your symptoms is unclear however based on laboratory and imaging studies does not require further evaluation or inpatient management at this time. You may use [id number] medications for symptoms however please do not exceed the daily recommended dosages and please keep in mind that many namebrand medications contain the same active ingredients. You will be given a prescription for antinausea medication. Please follow-up with your primary care provider. Please return the emergency department for anything that you are concerned about and feel needs emergency department evaluation. Coding Level of Care Code ED Commercial Retoucher for Kiet Wetzel
--- NOTE | 2021-02-14 11:04 | CTR_ITS ---
PROCEDURE INFORMATION: Exam: CT Abdomen And Pelvis With Contrast Exam date and time: 02/14/2021 11:04 AM Age: 21 years old Clinical indication: Abdominal pain; Localized; Right lower quadrant (rlq); Prior surgery; Surgery date: 6+ months; Surgery type: Gb; Additional info: Periumbilical/rlq abdominal pain TECHNIQUE: Imaging protocol: Computed tomography of the abdomen and pelvis with contrast. Axial, coronal and sagittal reformatted images were created and reviewed. Radiation optimization: All CT scans at this facility use at least one of these dose optimization techniques: automated exposure control; mA and/or kV adjustment per patient size (includes targeted exams where dose is matched to clinical indication); or iterative reconstruction. Contrast material: OMNIPAQUE 300; Contrast volume: 95 ml; Contrast route: INTRAVENOUS (IV); COMPARISON: CT abdomen pelvis w con* [id number] 04/10/2019 1:37 PM RADIATION DOSE METRICS: Total DLP (mGy-cm): 1822.12 FINDINGS: Lungs: Minimal bibasilar dependent atelectatic change. Diaphragm: Small hiatal hernia. Liver: Unremarkable. Gallbladder and bile ducts: Status post cholecystectomy. No biliary ductal dilatation. Pancreas: Unremarkable. Spleen: Unremarkable. Adrenal glands: Normal. No mass. Kidneys and ureters: No mass. No radiodense calculi. No hydronephrosis. Stomach and bowel: No bowel wall thickening. No obstruction. No pneumatosis. Appendix: Normal. Intraperitoneal space: No free fluid. No organized fluid collection. No free air. Vasculature: Unremarkable. No aneurysm. Lymph nodes: No pathologically enlarged lymph nodes. Urinary bladder: Unremarkable as visualized. Reproductive: Unremarkable. Bones/joints: No acute osseous abnormality. Soft tissues: Unremarkable. CT/CT abdomen pelvis w con* [id number]: 1[address] evidence of acute intra-abdominal or pelvic pathology. 2. Additional findings, as above. Radiation Dose CTDIVOL = (mGy): DLP = 1822.12 (mGy-cm)
[2021-02-14 12:32] VITALS: RESP 20; O2SAT 96
[2021-02-14] MEDS: morphine 4 mg/mL SDV 1 mL IVP (12:32)
[2021-02-14] MEDS: ondansetron 2 mg/ML SDV 2 mL 4 MG IVP (12:32)
[2021-02-14 12:43] VITALS: BP 143/76; PULSE 76; RESP 16; O2SAT 95
[2021-02-14 12:53] LABS: Basophils # 0.1 10^3/uL (0.0-0.1); Basophils % 0.7 %; Eosinophils # 0.1 10^3/uL (0.0-0.8); Eosinophils % 1.2 %; Hematocrit 43.4 % (37.0-47.0); Hemoglobin 13.8 g/dL (11.5-15.3); Lymphocytes # 2.9 10^3/uL (0.8-4.8); Lymphocytes % 35.6 %; Mean Corpuscular HGB Conc 31.8 g/dL (30.0-36.0); Mean Corpuscular Hemoglobin 27.3 pg (28.0-34.0); Mean Corpuscular Volume 85.9 fl (81-99); Mean Platelet Volume 11.1 fL (7.4-10.4); Monocytes # 0.5 10^3/uL (0.2-0.9); Monocytes % 6.6 %; Neutrophils # 4.58 10^3/uL (1.8-7.7); Neutrophils % 55.5 %; Nucleated Red Blood Cells % 0 %; Platelet Count 381 10^3/cmm (130-400); Red Blood Count 5.05 10^6/uL (4.1-5.3); White Blood Count 8.2 10^3/uL (4.0-10.0)
[2021-02-14 12:59] LABS: Add Urine Microscopic? YES; Bilirubin Urine Neg (Negative); Blood Urine Neg (Negative); Glucose Urine UA Norm (Normal); HCG Qualitative Urine. Negative (Negative); Ketones Urine Negative (Negative); Leukocyte Esterase Urine Negative (Negative); Nitrate Urine Negative (Negative); Protein Urine Neg (Negative); Urine Appearance Cloudy (CLEAR); Urine Color Yellow (Yellow); Urobilinogen Urine Norm (Negative); pH Urine 6 (5-7)
[2021-02-14 13:15] LABS: Squamous Epithelial Cell Urine 0-4 /hpf (0-5)
[2021-02-14 13:17] LABS: Alanine Aminotransferase 20 U/L (0-33); Albumin Level 4.1 g/dL (3.5-5.2); Alkaline Phosphatase 116 IU/L (35-105); Anion Gap 12.2 (5-19); Aspartate Amino Transferase 17 U/L (0-32); Blood Urea Nitrogen 11 mg/dL (6-20); Calcium 9.2 mg/dL (8.5-10.5); Carbon Dioxide 28 mmol/L (22-29); Chloride 102 mmol/L (98-107); Globulin 3.2 g/dL (1.3-4.6); Glomerular Filtration Rate 152.9 mL/min (90-130); Glucose 94 mg/dL (65-115); Lipase 21 U/L (13-60); Osmolality Calculated 285 mOsm/kg (285-295); Potassium 4.2 mmol/L (3.5-5.1); Sodium 138 mmol/L (136-145); Total Bilirubin 0.2 mg/dL (0.15-1.2); Total Protein 7.3 g/dL (6.6-8.7)
[2021-02-14] MEDS: iohexol 300 mg/mL 100 mL Btl IV (13:17)
[2021-02-14 14:08] VITALS: BP 124/66; PULSE 78; RESP 18; O2SAT 96
--- NOTE | 2021-02-14 15:09 | USR_ITS ---
PROCEDURE INFORMATION: Exam: US Duplex Artery or Vein of the Abdominal and/or Reproductive Organs, Limited Ovaries Exam date and time: 02/14/2021 3:09 PM Age: 21 years old Clinical indication: Pelvic pain; Additional info: Right adnexal tenderness TECHNIQUE: Imaging protocol: Real-time duplex ultrasound scan of the arterial or venous flow with rayo scale, color Doppler flow and spectral waveform analysis with image documentation. Limited duplex exam focused on the ovaries. Duplex images required to evaluate for torsion and other vascular conditions. COMPARISON: CT abdomen pelvis w con* [id number] 02/14/2021 1:10 PM FINDINGS: Right adnexa: Normal duplex of the ovary. Normal Doppler waveforms and color flow. No evidence of ovarian torsion. Left adnexa: Normal duplex of the ovary. Normal Doppler waveforms and color flow. No evidence of ovarian torsion. IMPRESSION: Normal duplex of the ovaries. No evidence of ovarian torsion. PROCEDURE INFORMATION: Exam: US Pelvis, Transvaginal Exam date and time: 02/14/2021 3:09 PM Age: 21 years old Clinical indication: Pelvic pain; Additional info: Right adnexal tenderness TECHNIQUE: Imaging protocol: Real-time transvaginal pelvic ultrasound with image documentation. Transvaginal imaging was used for better evaluation of the endometrium, adnexa, and/or cervix. COMPARISON: CT abdomen pelvis w con* [id number] 02/14/2021 1:10 PM FINDINGS: Uterus/cervix: 7.1 x 3.1 x 3 cm. Normal endometrial thickness, measuring approximately 11 mm. Cervical nabothian cysts. Right ovary: 2.6 x 2.6 x 4 cm. No mass. Normal ovarian blood flow. Left ovary: 4.4 x 3.6 x 3.1 cm. No mass. Normal ovarian blood flow. Intraperitoneal space: No free fluid. US/US pelvic with transvaginal IMPRESSION: No acute sonographic findings. Radiation Dose CTDIVOL = (mGy): DLP = (mGy-cm)
[2021-02-14 16:50] VITALS: BP 122/66; PULSE 76; RESP 18; O2SAT 96
== END 2021-02-14 16:54 | disposition home or self-care (01) ==
PROVIDERS: Emergency Provider Emergency Medicine
DX: R10.9 Unspecified abdominal pain (principal); R11.2 Nausea with vomiting, unspecified; R19.7 Diarrhea, unspecified; F17.210 Nicotine dependence, cigarettes, uncomplicated
CPT/HCPCS: 74177; 76830; 76856; 80053; 81001; 81025; 83690; 85025; 87210; 87491; 87591; 96374; 96375; 99283; J2270; J2405; Q9967

== ENCOUNTER 2021-09-06 00:21 | Emergency (ER) | payer OTHER, MEDICAID, SELFPAY ==
[2021-09-06 00:27] VITALS: BP 170/84; PULSE 83; RESP 16; TEMP 36.6; O2SAT 96; BMI 48.4
--- NOTE | 2021-09-06 00:48 | W.ED.EAR ---
HPI - Ear Problem General: Chief complaint: Ear Stated complaint: Left ear pressure Time Seen by Provider: 09/06/21 00:34 History of Present Illness: Patient is a 21-year-old female comes to the ED with left ear complaint. Patient says for the last week she has been feeling some pressure in her left ear that has continued to increase.She thinks approximately a week ago a bug flew in her left ear. She denies having any ear pain and she thinks the bug came out on its own. Approximately 2 to 3 days ago she had a little bit of clear drainage from left ear but that resolved. She does have some seasonal allergies. Denies any fever, upper respiratory symptoms, nausea/vomiting. Associated symptoms: Reports ear or mastoid pain (left ear pressure); Denies fever(s), headache(s) or neck pain Review of Systems Const: Denies: fever(s), chills or fatigue Eyes: Denies: change in vision or eye discomfort ENMT: Reports: ear or mastoid pain (left ear pressure) and ear discharge (left ear-clear discharge); Denies: throat pain, odynophagia, nasal discharge or nasal congestion Card: Denies: chest pain, palpitations, edema, swelling of feet/ankles, dyspnea on exertion or orthopnea Resp: Denies: dyspnea, productive cough or non-productive cough GI: Denies: abdominal pain, nausea, vomiting, diarrhea, constipation or hematochezia : Denies: flank pain, dysuria or hematuria Musc: Denies: neck pain, back pain or extremity swelling Skin/Breast: Denies: rash or new lesions Neuro: Denies: headache(s), numbness in extremities or weakness in extremities PFSH ED PFSH: Medical History Anxiety disorder Cholelithiasis Drain care and teaching RTC as scheduled Chronic posttraumatic stress disorder Gastroenteritis Mood and affect disturbance 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 Surgical History S/P laparoscopic cholecystectomy (~04/2019) Family History Denies family history of Anesthesia complication Bleeding disorder Social History Smoking and tobacco status: current every day smoker cigarettes Quit status (tobacco): has tried quititng Second hand smoke exposure: No Alcohol intake: current Alcohol intake frequency: holidays/special occasions only Alcohol type: hard liquor Desire information about alcohol rehabilitation?: No Desire information about substance/drug rehabilitation?: No Adopted: No Caregiver/support person: Yes Lives independently: Yes Household members: spouse Housing: House Marital status: Highest education level completed: High School Graduate service: No Current occupational status: employed 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[employer] Current occupational exposures/hazards: No Pets and animals: Yes (outside ) Pets & animals: cat(s) History of recent travel: No Leisure activites: exercise Sexually active: Yes Current gender identity: Female [place]/Gnosticism: [employer] Special adelaide needs: No Agree to transfusion: No Financial difficulty paying for basics: Decline to Answer Female Reproductive History: Date of last menstrual period: 11/10/19 Spontaneous abortions: No Physical Exam Const: COMMON NORMALS: no acute distress, patient oriented x3 and alert GENERAL APPEARANCE: cooperative and comfortable HENMT: COMMON NORMALS: normocephalic, external ears normal, EAC's normal and TM's normal bilaterally HEAD & SCALP: normocephalic EXTERNAL EAR: Yes external ears normal EXTERNAL AUDITORY CANAL: EAC's normal TYMPANIC MEMBRANE: TM's normal bilaterally MOUTH: Normal oral and palatal mucosa present THROAT: posterior oropharynx normal and uvula midline Eye: COMMON NORMALS: Equal, round and reactive pupils present and conjunctivae normal CONJUNCTIVA: Yes conjunctivae normal PUPIL: Yes Equal, round and reactive pupils present Neck/C-Spine: COMMON NORMALS: supple GENERAL: Yes normal visual inspection Resp: COMMON NORMALS: normal respiratory effort, No retractions, No use of accessory muscles and clear to auscultation bilaterally AUSCULTATION: clear to auscultation bilaterally Cardio: COMMON NORMALS: regular rate, regular rhythm, S1 normal heart sound present, S2 normal heart sound present, No gallops present (Cardio), No clicks present (Cardio), No murmurs present (Cardio) and Peripheral pulses 2+ throughout RATE: regular rate RHYTHM: regular rhythm HEART SOUNDS: S1 normal heart sound present and S2 normal heart sound present PERIPHERAL PULSES: Peripheral pulses 2+ throughout GI: COMMON NORMALS: Normal to inspection, nondistended, normoactive bowel sounds present, Soft to palpation, non-tender and no masses PALPATION: Yes Soft to palpation : COMMON NORMALS: Yes no CVA tenderness BLADDER/KIDNEY EXAM: Yes no CVA tenderness Back/Pelvis: COMMON NORMALS: no CVA tenderness Extremity: COMMON NORMALS: normal to inspection Neuro: COMMON NORMALS: patient oriented x3 and moves all extremities SENSORIUM/ORIENTATION: Yes alert Skin: GENERAL SKIN EXAM: dry skin Course Vital Signs: Vital signs: Vital Signs Temperature 98 F 09/06/21 00:27 Pulse Rate 83 09/06/21 00:27 Respiratory Rate 16 09/06/21 00:27 Blood Pressure 170/84 09/06/21 00:27 Pulse Oximetry 96 09/06/21 00:27 [facility] - Ear Medical Decision Making Patient is a 21-year-old female comes to the ED with left ear complaint. Patient states she feels some pressure in her left ear. Denies any fevers or upper respiratory symptoms. Patient does have seasonal allergies. Vitals are stable. Exam of ears is normal and no signs of any infection noted. Patient diagnosed with normal ear exam and was discharged home. Told to follow-up with PCP in the next week for reevaluation. I told her to take some [id number] decongestants to help with her symptoms. Return to ED precautions given. Patient understood agree with plan. Discharge Plan Discharge Patient Disposition: Home Clinical Impression: Normal ear exam Condition: Stable Discharge Orders: Discharge ED (Routine); Ordered 09/06/21 Ordered By: Sundeep Dial Referrals: Tana Hernandez APN [Primary Care Provider] - Discharge Diet: Regular Discharge Activity: Resume usual activity Activity Restrictions/Additional Instructions: Follow-up with medical provider as directed in the next 7 to 10 days reevaluation. take [id number] decongestants to help with symptoms. Return to the ER or your medical provider if condition worsens. Please read and understand discharge instructions. Thank you for choosing [facility] for your healthcare needs today. Please realize this is an emergency room and that we are providing you with a medical screening exam and this may not be complete and all inclusive of all the testing and or work up that you may need to determine your ailment or severity of your illness. It is very important that you follow up as instructed or that you return to the Emergency Department should you have concerns or if your condition changes or worsens in any way. Coding Level of Care Code ED Customer Success Specialist for Chg Fwd Exam Comprehensive
== END 2021-09-06 01:32 | disposition home or self-care (01) ==
PROVIDERS: Emergency Provider Physician Assistant; PCP Nurse Practitioner Family
DX: H92.02 Otalgia, left ear (principal); J30.2 Other seasonal allergic rhinitis; F17.210 Nicotine dependence, cigarettes, uncomplicated
CPT/HCPCS: 99282

== ENCOUNTER 2021-09-26 12:02 | Emergency (ER) | payer OTHER, MEDICAID, SELFPAY ==
[2021-09-26 12:14] VITALS: PULSE 78; RESP 16; TEMP 36.6; O2SAT 96; BMI 48.4
[2021-09-26 12:49] VITALS: BP 130/89; PULSE 83; O2SAT 99
--- NOTE | 2021-09-26 13:20 | W.ED.NAVMDI ---
HPI - Nausea/Vomiting/Diarrhea General: Chief complaint: Nausea/Vomiting/Diarrhea Stated complaint: diarrhea; nausea Time Seen by Provider: 09/26/21 12:20 Source: patient Mode of arrival: ambulatory Limitations: no limitations History of Present Illness: 21-year-old female presents emergency room with complaint of nausea and vomiting. Most of her symptoms resolved. She does not feel she is able to go to work today and called into work she states when I came to the room she really just needs a note for work. She is comfortable she says her nausea and vomiting have mostly resolved although she has a little bit of residual nausea. She denies any fever sweats chills hematochezia melena hematemesis cough cramps dysuria urgency or frequency MD elicited complaint: nausea and vomiting Onset (ago): hour(s) (24) Description of vomiting: food contents and watery Description of diarrhea: lose Associated nausea: Yes Associated abdominal pain: No Severity: moderate Exacerbating factors: none Relieving factors: none Associated symtoms: Reports nausea; Denies altered mental status, anxiety, bloating, change in vision, chest pain, cough, diaphoresis, decreased urine output, dizziness, dysuria, epistaxis, fatigue, fecal incontinence, fevers/chills, headache(s), anorexia, malaise, myalgias, numbness, palpitations, rash, short of breath, syncope, tenesmus, tinnitus or weakness Review of Systems Const: Denies: fever(s), chills, fatigue, malaise or diaphoresis Eyes: Denies: change in vision ENMT: Denies: tinnitus or epistaxis Card: Denies: chest pain, palpitations or syncope Resp: Denies: dyspnea, productive cough or non-productive cough GI: Reports: nausea, vomiting and diarrhea; Denies: abdominal pain, hematemesis, coffee ground emesis, dysphagia, bloating or fecal incontinence : Denies: flank pain, difficulty voiding, dysuria, urinary frequency or urinary urgency Musc: Denies: neck pain or back pain Skin/Breast: Denies: rash or pruritus Neuro: Denies: headache(s) or dizziness Psych: Denies: anxiety PFSH ED PFSH: Medical History Anxiety disorder Cholelithiasis Drain care and teaching RTC as scheduled Chronic posttraumatic stress disorder Gastroenteritis Mood and affect disturbance 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 Surgical History S/P laparoscopic cholecystectomy (~04/2019) Family History Denies family history of Anesthesia complication Bleeding disorder Social History Smoking and tobacco status: current every day smoker cigarettes Quit status (tobacco): has tried quititng Second hand smoke exposure: No Alcohol intake: current Alcohol intake frequency: holidays/special occasions only Alcohol type: hard liquor Desire information about alcohol rehabilitation?: No Desire information about substance/drug rehabilitation?: No Adopted: No Caregiver/support person: Yes Lives independently: Yes Household members: spouse Housing: House Marital status: Highest education level completed: High School Graduate service: No Current occupational status: employed 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[employer] Current occupational exposures/hazards: No Pets and animals: Yes (outside ) Pets & animals: cat(s) History of recent travel: No Leisure activites: exercise Sexually active: Yes Current gender identity: Female [place]/Nondenominational: Episcopal Special adelaide needs: No Agree to transfusion: No Financial difficulty paying for basics: Decline to Answer Female Reproductive History: Date of last menstrual period: 11/10/19 Spontaneous abortions: No Physical Exam Const: COMMON NORMALS: patient oriented x3 EXAM LIMITATIONS: no altered mental status GENERAL APPEARANCE: cooperative, comfortable and well kempt NUTRITIONAL APPEARANCE: obese ORIENTATION/CONSCIOUSNESS: Yes awake, Yes oriented to person, Yes oriented to place and Yes oriented to time HENMT: COMMON NORMALS: normocephalic, atraumatic, hearing grossly normal bilaterally, EAC's normal, TM's normal bilaterally and Normal external nose present HEAD & SCALP: normocephalic and atraumatic NOSE: Normal external nose present EXTERNAL AUDITORY CANAL: EAC's normal TYMPANIC MEMBRANE: TM's normal bilaterally MOUTH: Normal oral and palatal mucosa present, lip normal and tongue normal THROAT: posterior oropharynx normal and tonsils normal Eye: COMMON NORMALS: Equal, round and reactive pupils present, EOMs intact bilaterally, conjunctivae normal and no scleral icterus CONJUNCTIVA: Yes conjunctivae normal PUPIL: Yes Equal, round and reactive pupils present Neck/C-Spine: COMMON NORMALS: no meningeal signs, no JVD and Thyroid normal THYROID: Thyroid normal and asymmetrical Lymph: LYMPHATIC: no lymphadenopathy noted Resp: COMMON NORMALS: normal respiratory effort, No retractions, No use of accessory muscles and clear to auscultation bilaterally AUSCULTATION: clear to auscultation bilaterally Cardio: COMMON NORMALS: no JVD, regular rate, regular rhythm and No murmurs present (Cardio) RATE: regular rate RHYTHM: regular rhythm HEART SOUNDS: no murmurs GI: COMMON NORMALS: Soft to palpation and No hepatosplenomegaly present AUSCULTATION: Yes normoactive bowel sounds PALPATION: Yes Soft to palpation, No Tenderness to palpation present (GI), No Guarding due to palpation present (GI) and Yes No hepatosplenomegaly present : COMMON NORMALS: Yes no CVA tenderness BLADDER/KIDNEY EXAM: Yes no CVA tenderness Back/Pelvis: COMMON NORMALS: no CVA tenderness LUMBAR SPINE/LOWER BACK: Yes normal to inspection Extremity: COMMON NORMALS: normal to inspection, capillary refill normal, no clubbing, cyanosis or edema, no calf tenderness and no pedal edema Neuro: COMMON NORMALS: patient oriented x3 SENSORIUM/ORIENTATION: Yes oriented to person, Yes oriented to place and Yes oriented to time MENINGEAL SIGNS: Yes no meningeal signs Psych: APPEARANCE: Yes well kempt Skin: COMMON NORMALS: no rashes or lesions noted GENERAL SKIN EXAM: no rashes or lesions noted Course Vital Signs: Vital signs: Vital Signs Temperature 97.9 F 09/26/21 12:14 Pulse Rate 83 09/26/21 12:49 Respiratory Rate 16 09/26/21 12:14 Blood Pressure 130/89 09/26/21 12:49 Pulse Oximetry 99 09/26/21 12:49 MDM - Nausea/Vomiting/Diarrhea Medical Decision Making Exam normal. Patient declines further work-up or laboratory studies. She would just like a note for work. Advised she can return at any time if she has any worsening or change symptoms. Medical Records I reviewed the patient's medical records. Lab Data I reviewed the patient's lab results. Discharge Plan Discharge Patient Disposition: Home Clinical Impression: Gastroenteritis Condition: Stable Prescriptions: New promethazine 25 mg tablet 25 mg PO Q6H PRN (Reason: nausea and vomiting) Qty: 10 0RF Discharge Orders: Discharge ED (Routine); Ordered 09/26/21 Ordered By: Jose Alberto Berry Referrals: Tana Hernandez APN [Primary Care Provider] - Discharge Diet: Clear Liquid Discharge Activity: Resume usual activity Patient Instructions: Opioid Safety Activity Restrictions/Additional Instructions: If symptoms worsen return to the ER for further evaluation if needed. Coding Level of Care Code ED Ribbon Hanking Machine Operator for Kiet Wetzel
== END 2021-09-26 12:50 | disposition home or self-care (01) ==
PROVIDERS: Emergency Provider Family Medicine; PCP Nurse Practitioner Family
DX: K52.9 Noninfective gastroenteritis and colitis, unspecified (principal)
CPT/HCPCS: 99283

== ENCOUNTER 2021-11-22 22:43 | Emergency (ER) | payer OTHER, MEDICAID, SELFPAY ==
--- NOTE | 2021-11-22 22:55 | ED_ITS ---
HPI - Abdominal Pain General: Chief Complaint: Abdominal Pain Stated Complaint: Lower ABD Pain Time Seen by Provider: 11/22/21 22:54 History of Present Illness: Ms Zuniga is a 21-year-old lady with history of PCOS who presents to the emergency department due to abdominal pain. She reports history of similar episodes in the past. Onset of symptoms was a few days ago and subacute without known provoking factor. She endorses urinary urgency associated with this but no dysuria. No changes in bowel movements. No nausea or vomiting. She reports trying Tylenol and ibuprofen at home without significant relief. Intensity symptoms is moderate to severe. Course has persisted. Last menstrual period was somewhat irregular in the middle of last month. Patient denies concern over sexually transmitted infections or new sexual partners. No other specific changes in health, exacerbating, or alleviating factors identified. 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 Surgical History S/P laparoscopic cholecystectomy (~04/2019) Family History Denies family history of Anesthesia complication Bleeding disorder Social History Smoking and tobacco status: current every day smoker cigarettes Quit status (tobacco): has tried quititng Second hand smoke exposure: No Alcohol intake: current Alcohol intake frequency: holidays/special occasions only Alcohol type: hard liquor Desire information about alcohol rehabilitation?: No Desire information about substance/drug rehabilitation?: No Adopted: No Caregiver/support person: Yes Lives independently: Yes Household members: spouse Housing: House Marital status: Highest education level completed: High School Graduate service: No Current occupational status: employed 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[employer] Current occupational exposures/hazards: No Pets and animals: Yes (outside ) Pets & animals: cat(s) History of recent travel: No Leisure activites: exercise Sexually active: Yes Current gender identity: Female Adelaide/Yarsanism: Congregational Special adelaide needs: No Agree to transfusion: No Financial difficulty paying for basics: Decline to Answer Female Reproductive History: Date of last menstrual period: 11/10/19 Spontaneous abortions: No Physical Exam Const: COMMON NORMALS: alert GENERAL APPEARANCE: cooperative and well developed HENMT: COMMON NORMALS: normocephalic and atraumatic HEAD & SCALP: normocephalic and atraumatic Eye: COMMON NORMALS: conjunctivae normal CONJUNCTIVA: Yes conjunctivae normal SCLERA: sclerae normal Neck/C-Spine: COMMON NORMALS: supple GENERAL: Yes trachea midline Resp: COMMON NORMALS: clear to auscultation bilaterally EFFORT & INSPECTION: Yes able to speak in complete sentences AUSCULTATION: clear to a uscultation bilaterally Cardio: COMMON NORMALS: regular rate and regular rhythm RATE: regular rate RHYTHM: regular rhythm GI: COMMON NORMALS: Soft to palpation PALPATION: Yes Soft to palpation and No Tenderness to palpation present (GI) PERCUSSION: normal to percussion Extremity: GENERAL: Yes normal exam except as noted and No edema Neuro: COMMON NORMALS: moves all extremities SENSORIUM/ORIENTATION: Yes alert and No Orientation impaired Psych: COMMON NORMALS: mental status grossly normal and Normal thought process present THOUGHT PROCESS: Normal thought process present Course ED course: - Patient was seen and evaluated by me at bedside - Patient placed on cardiac monitors, IV access obtained - Initial evaluation notable for exam as above - Labs personally interpreted by me -Fluids and analgesia given - Labs notable for no leukocytosis, normal hemoglobin. Metabolic panel without acute derangement. No UTI. Negative hCG. -Based on exam and history and in discussion with the patient indication for imaging at this time - Upon serial reexamination after treatment the patient was improved - Based on patient history, evaluation, and testing as interpreted the most likely cause of the patient's condition is abdominal pain of uncertain etiology - The results of ED evaluation were discussed with the patient including prescriptions and/or symptomatic cares (if applicable) including appropriate and responsible use, followup plan, and return precautions. The patient verbalized understanding and felt safe for discharge. - Patient discharged in satisfactory condition. Note: Click bubbles or prepopulated butt in note writing are used for assistance with data collection and billing and are inherently more limited than narrative and other text portions of this note. Please use narrative for additional clinical history and defer to narrative/free test for any case of contradictory information. If information appears in only free text or click bubble it khadijah uld be considered present or absent as reported. Please contact note advertising copywriter for clarifications of clinical information or contradictory information. MDM is a brief summary, contradictory or erroneous seeming information should be clarified and full note should be reviewed. Vital Signs: Vital signs: Vital Signs Temperature 98.2 F 11/22/21 22:57 Pulse Rate 95 11/22/21 23:30 Respiratory Rate 18 11/22/21 22:57 Blood Pressure 161/84 11/23/21 00:30 Pulse Oximetry 94 11/22/21 23:30 Oxygen Delivery Me thod 11/22/21 22:57 MDM - Abdominal Pain Medical Decision Making 21-year-old lady presenting with abdominal pain and urinary symptoms. Patient nontoxic on and. Laboratory studies without clear etiology and patient improved with treatment. She is comfortable foregoing imaging. Strict return precautions given. Medical Records I reviewed the patient's medical records. Lab Data I reviewed the patient's lab results. : 11/22/21 23:05 11/22/21 23:05 Labs/Radiology: Laboratory Results WBC 8.2 10^3/uL (4.0-10.0) 11/22/21 23:05 RBC 5.23 10^6/uL (4.1-5.3) 11/22/21 23:05 Hgb 13.9 g/dL (11.5-15.3) 11/22/21 23:05 Hct 42.2 % (37.0-47.0) 11/22/21 23:05 MCV 80.7 fl (81-99) L 11/22/21 23:05 MCH 26.6 pg (28.0-34.0) L 11/22/21 23:05 MCHC 32.9 g/dL (30.0-36.0) 11/22/21 23:05 RDW 13.4 % (12.1-15.1) 11/22/21 23:05 Plt Count 396 10^3/cmm (130-400) 11/22/21 23:05 MPV 10.9 fL (7.4-10.4) H 11/22/21 23:05 Neut % (Auto) 55.0 % 11/22/21 23:05 Lymph % (Auto) 37.9 % 11/22/21 23:05 Ceiba % (Auto) 5.3 % 11/22/21 23:05 Eos % (Auto) 0.7 % 11/22/21 23:05 Baso % (Auto) 0.9 % 11/22/21 23:05 Neut # (Auto) 4.49 10^3/uL (1.8-7.7) 11/22/21 23:05 Lymph # (Auto) 3.1 10^3/uL (0.8-4.8) 11/22/21 23:05 Ceiba # (Auto) 0.4 10^3/uL (0.2-0.9) 11/22/21 23:05 Eos # (Auto) 0.1 10^3/uL (0.0-0.8) 11/22/21 23:05 Baso # (Auto) 0.1 10^3/uL (0.0-0.1) 11/22/21 23:05 Nucleated RBC % (auto) 0 % 11/22/21 23:05 Nucleated RBCs # 0.0 /100WBC 11/22/21 23:05 Sodium 137 mmol/L (136-145) 11/22/21 23:05 Potassium 3.7 mmol/L (3.5-5.1) 11/22/21 23:05 Chloride 100 mmol/L (98-107) 11/22/21 23:05 Carbon Dioxide 23 mmol/L (22-29) 11/22/21 23:05 Anion Gap 17.7 (5-19) 11/22/21 23:05 BUN 12 mg/dL (6-20) 11/22/21 23:05 Creatinine 0.6 mg/dL (0.5-0.9) 11/22/21 23:05 GFR Calculation 123.9 mL/min (90-130) 11/22/21 23:05 Glucose 111 mg/dL (65-115) 11/22/21 23:05 Calculated Osmolality 284 mOsm/kg (285-295) L 11/22/21 23:05 Calcium 9.2 mg/dL (8.5-10.5) 11/22/21 23:05 Total Bilirubin 0.2 mg/dL (0.15-1.2) 11/22/21 23:05 AST 19 U/L (0-32) 11/22/21 23:05 ALT 22 U/L (0-33) 11/22/21 23:05 Alkaline Phosphatase 117 IU/L (35-105) H 11/22/21 23:05 Total Protein 7.1 g/dL (6.6-8.7) 11/22/21 23:05 Albumin 3.8 g/dL (3.5-5.2) 11/22/21 23:05 Globulin 3.3 g/dL (1.3-4.6) 11/22/21 23:05 Lipase 26 U/L (13-60) 11/22/21 23:05 HCG, Qual Negative (Negative) 11/22/21 23:18 Urine Color Yellow (Yellow) 11/22/21 23:18 Urine Appearance Clear (CLEAR) 11/22/21 23:18 Urine pH 6 (5-7) 11/22/21 23:18 Ur Specific [place] 1.015 (1.005-1.030) 11/22/21 23:18 Urine Protein Neg (Negative) 11/22/21 23:18 Urine Glucose (UA) Norm (Normal) 11/22/21 23:18 Urine Ketones Negative (Negative) 11/22/21 23:18 Urine Blood Neg (Negative) 11/22/21 23:18 Urine Nitrate Negative (Negative) 11/22/21 23:18 Urine Bilirubin Neg (Negative) 11/22/21 23:18 Urine Urobilinogen Norm mg/dL (Negative) 11/22/21 23:18 Ur Leukocyte Esterase Negative (Negative) 11/22/21 23:18 Discharge Plan Discharge Patient Disposition: Home Clinical Impression: Abdominal pain Condition: Stable Prescriptions: New dicyclomine 10 mg capsule 10 mg PO TID PRN (Reason: Abdominal Pain) Qty: 10 0RF ondansetron 4 mg tablet,disintegrating 4 mg PO Q8H PRN (Reason: nausea and vomiting) Qty: 15 0RF No Action amoxicillin-pot clavulanate 875-125 mg tablet 1 tab PO BID 7 Days Qty: 14 0RF ibuprofen 800 mg tablet 800 mg PO Q8H Qty: 10 0RF Discharge Orders: Discharge ED (Routine); Ordered 11/23/21 Ordered By: Keshav Swenson Referrals: Tana Hernandez APN [Primary Care Provider] - Discharge Diet: Advance as tolerated and Clear Liquid Discharge Activity: Increase activity as tolerated Patient Instructions: Abdominal Pain (ED), Opioid Safety Activity Restrictions/Additional Instructions: Thank you for visiting the emergency department. You were seen and evaluated for abdominal pain. The exact cause of your symptoms is unclear though given normal laboratory studies I do not feel that inpatient evaluation is needed at this time. Please follow-up with your primary care provider. Return to the emergency department for worsening symptoms, inability to tolerate oral intake, blood in stool or vomit, or anything else that you are concerned about a feel needs emergency department evaluation. Coding Level of Care Code ED Plant Sciences Professor for Kiet Wetzel Exam Comprehensive
[2021-11-22 22:57] VITALS: BP 131/97; PULSE 100; RESP 18; TEMP 36.8; O2SAT 95; BMI 49.5
[2021-11-22 23:14] LABS: Basophils # 0.1 10^3/uL (0.0-0.1); Basophils % 0.9 %; Eosinophils # 0.1 10^3/uL (0.0-0.8); Eosinophils % 0.7 %; Hematocrit 42.2 % (37.0-47.0); Hemoglobin 13.9 g/dL (11.5-15.3); Lymphocytes # 3.1 10^3/uL (0.8-4.8); Lymphocytes % 37.9 %; Mean Corpuscular HGB Conc 32.9 g/dL (30.0-36.0); Mean Corpuscular Hemoglobin 26.6 pg (28.0-34.0); Mean Corpuscular Volume 80.7 fl (81-99); Mean Platelet Volume 10.9 fL (7.4-10.4); Monocytes # 0.4 10^3/uL (0.2-0.9); Monocytes % 5.3 %; Neutrophils # 4.49 10^3/uL (1.8-7.7); Nucleated Red Blood Cells % 0 %; Platelet Count 396 10^3/cmm (130-400); Red Blood Count 5.23 10^6/uL (4.1-5.3); Red Cell Distribution Width 13.4 % (12.1-15.1); White Blood Count 8.2 10^3/uL (4.0-10.0)
[2021-11-22] MEDS: morphine 4 mg/mL SDV 1 mL IVP (23:26)
[2021-11-22] MEDS: dicyclomine 10 mg Capsule PO (23:26)
[2021-11-22] MEDS: sodium chloride 0.9% 1,000 ML 999 ML IV (23:28)
[2021-11-22 23:30] VITALS: BP 148/95; PULSE 95; O2SAT 94
[2021-11-22 23:33] LABS: Alanine Aminotransferase 22 U/L (0-33); Albumin Level 3.8 g/dL (3.5-5.2); Alkaline Phosphatase 117 IU/L (35-105); Anion Gap 17.7 (5-19); Aspartate Amino Transferase 19 U/L (0-32); Blood Urea Nitrogen 12 mg/dL (6-20); Calcium 9.2 mg/dL (8.5-10.5); Carbon Dioxide 23 mmol/L (22-29); Chloride 100 mmol/L (98-107); Globulin 3.3 g/dL (1.3-4.6); Glomerular Filtration Rate 123.9 mL/min (90-130); Glucose 111 mg/dL (65-115); Lipase 26 U/L (13-60); Osmolality Calculated 284 mOsm/kg (285-295); Potassium 3.7 mmol/L (3.5-5.1); Sodium 137 mmol/L (136-145); Total Bilirubin 0.2 mg/dL (0.15-1.2); Total Protein 7.1 g/dL (6.6-8.7)
[2021-11-22 23:34] LABS: HCG, Serum Qual Negative (Negative)
[2021-11-22 23:36] LABS: Add Urine Microscopic? NO; Charge for UA Resulting for Rev
[2021-11-22 23:37] LABS: Bilirubin Urine Neg (Negative); Blood Urine Neg (Negative); Glucose Urine UA Norm (Normal); Ketones Urine Negative (Negative); Leukocyte Esterase Urine Negative (Negative); Nitrate Urine Negative (Negative); Protein Urine Neg (Negative); Specific Gravity, Urine 1.015 (1.005-1.030); Urine Appearance Clear (CLEAR); Urine Color Yellow (Yellow); Urobilinogen Urine Norm (Negative); pH Urine 6 (5-7)
[2021-11-23] VITALS: BP 142/70
[2021-11-23 00:30] VITALS: BP 161/84
== END 2021-11-23 01:33 | disposition home or self-care (01) ==
PROVIDERS: Physician Assistant; Emergency Provider Emergency Medicine; PCP Nurse Practitioner Family
DX: R10.9 Unspecified abdominal pain (principal); F17.210 Nicotine dependence, cigarettes, uncomplicated
CPT/HCPCS: 80053; 81003; 83690; 84703; 85025; 96374; 99284; J2270; J7030

== ENCOUNTER 2022-03-04 07:31 | Emergency (ER) | payer MEDICAID, SELFPAY ==
[2022-03-04 07:37] VITALS: BP 113/57; PULSE 113; RESP 24; TEMP 37.6; O2SAT 97; BMI 37.1
--- NOTE | 2022-03-04 07:48 | PC.NURSE ---
oxygen turned off after arrival to ED.
--- NOTE | 2022-03-04 07:58 | ED_ITS ---
HPI - URI/Sore Throat General: Chief Complaint: Upper Respiratory Infection Stated Complaint: flu-like symptoms Time Seen by Provider: 03/04/22 07:43 Source: patient Mode of arrival: ambulatory History of Present Illness: 22-year-old female presents emergency room with cough fever for the last 3 to 4 days. Its gotten worse especially the last 2 days. No vomiting no diarrhea her is also seen this morning and has tested positive for the flu. MD elicited complaint: fever and cough Onset (ago): day(s) (3-4) Consistency: constant Severity: moderate Able to tolerate fluids by mouth: Yes Exacerbating factors: nothing Relieving factors: nothing Associated symptoms: Reports congestion, cough, nasal congestion, nausea, rhinorrhea, short of breath and vomiting; Deny abdominal pain, change in voice, chills, chest pain, diarrhea, epistaxis, ear or mastoid pain, fever(s), headache(s), myalgias, rash, sinus pain, stiffness or sore throat Treatments prior to arrival: none Review of Systems Const: Denies: fever(s) or chills ENMT: Reports: throat pain and nasal congestion; Denies: ear or mastoid pain, epistaxis or sinus pain Card: Denies: chest pain Resp: Reports: non-productive cough; Denies: dyspnea or productive cough GI: Reports: nausea and vomiting; Denies: abdominal pain or diarrhea : Denies: flank pain, difficulty voiding, dysuria, urinary frequency or urinary urgency Skin/Breast: Denies: rash or pruritus Neuro: Denies: headache(s) PFS ED PFSH: Medical History Anxiety disorder Cholelithiasis Drain care and teaching RTC as scheduled Chronic posttraumatic stress disorder Gastroenteritis Mood and affect disturbance 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 Surgical History S/P laparoscopic cholecystectomy (~04/2019) Family History Denies family history of Anesthesia complication Bleeding disorder Social History Smoking and tobacco status: current every day smoker cigarettes Quit status (tobacco): has tried quititng Second hand smoke exposure: No Alcohol intake: current Alcohol intake frequency: holidays/special occasions only Alcohol type: hard liquor Desire information about alcohol rehabilitation?: No Desire information about substance/drug rehabilitation?: No Adopted: No Caregiver/support person: Yes Lives independently: Yes Household members: spouse Housing: House Marital status: Highest education level completed: High School Graduate service: No Current occupational status: employed 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[employer] Current occupational exposures/hazards: No Pets and animals: Yes (outside ) Pets & animals: cat(s) History of recent travel: No Leisure activites: exercise Sexually active: Yes Current gender identity: Female [place]/Spiritism: Judaism Special adelaide needs: No Agree to transfusion: No Financial difficulty paying for basics: Decline to Answer Female Reproductive History: Date of last menstrual period: 11/10/19 Spontaneous abortions: No Physical Exam Const: COMMON NORMALS: no acute distress GENERAL APPEARANCE: cooperative and comfortable ORIENTATION/CONSCIOUSNESS: Yes awake, Yes oriented to person, Yes oriented to place and Yes oriented to time HENMT: COMMON NORMALS: normocephalic, atraumatic and hearing grossly normal bilaterally HEAD & SCALP: normocephalic and atraumatic Resp: COMMON NORMALS: normal respiratory effort, No retractions and No use of accessory muscles AUSCULTATION: wheezes Cardio: COMMON NORMALS: regular rhythm and No murmurs present (Cardio) RATE: tachycardic RHYTHM: regular rhythm PERIPHERAL PULSES: popliteal pulses present GI: COMMON NORMALS: Soft to palpation and No hepatosplenomegaly present AUSCULTATION: Yes normoactive bowel sounds PALPATION: Yes Soft to palpation, No Tenderness to palpation present (GI), No Guarding due to palpation present (GI) and Yes No hepatosplenomegaly present Extremity: COMMON NORMALS: normal to inspection, capillary refill normal, no clubbing, cyanosis or edema, no calf tenderness and no pedal edema Neuro: SENSORIUM/ORIENTATION: Yes oriented to person, Yes oriented to place and Yes oriented to time Skin: COMMON NORMALS: no rashes or lesions noted GENERAL SKIN EXAM: no rashes or lesions noted Course Vital Signs: Vital signs: Vital Signs Temperature 99.6 F 03/04/22 07:37 Pulse Rate 113 H 03/04/22 08:04 Respiratory Rate 22 H 03/04/22 08:04 Blood Pressure 135/74 03/04/22 08:04 Pulse Oximetry 94 03/04/22 08:07 Oxygen Delivery Me thod 03/04/22 08:07 Oxygen Flow Rate 2 03/04/22 07:37 MDM - URI/Sore Throat Medical Decision Making Patient has symptoms of influenza her is also emergency room tested positive for influenza. Treated same she is not a candidate for antivirals due to the length of time since onset of symptoms oxygen saturation maintained on room air discharge home albuterol as needed Tylenol or Profen for comfort. Medical Records I reviewed the patient's medical records. Lab Data I reviewed the patient's lab results. Discharge Plan Discharge Patient Disposition: Home Clinical Impression: Influenza Condition: Stable Prescriptions: New albuterol sulfate 90 mcg/actuation HFA aerosol inhaler 2 inh INHALATION Q4H PRN (Reason: shortness of breath or wheezing) Qty: 18 0RF No Action Tylenol Ex Str Rapid Release 500 mg Tablet 1,000 mg PO Q6H PRN (Reason: Pain) NyQuil Liquicaps Capsule 2 cap PO BEDTIME PRN (Reason: Flu Symptoms) Dayquil Cold And Flu Caps 2 cap PO Q4H PRN (Reason: Flu Symptoms) Discharge Orders: Discharge ED (Routine); Ordered 03/04/22 Ordered By: Jose Alberto Berry Referrals: Tana Hernandez APN [Primary Care Provider] - Discharge Diet: Usual diet Discharge Activity: Increase activity as tolerated Patient Instructions: Influenza (ED), Opioid Safety, Pain Management Stand Alone Forms: Work/School Release Coding Level of Care Code ED [employer] Power Plant Manager for Kiet Wetzel
[2022-03-04 08:04] VITALS: BP 135/74; PULSE 113; RESP 22; O2SAT 94
[2022-03-04 08:07] VITALS: O2SAT 94
== END 2022-03-04 08:09 | disposition home or self-care (01) ==
PROVIDERS: Emergency Provider Family Medicine; PCP Nurse Practitioner Family
DX: J11.1 Influenza due to unidentified influenza virus with other respiratory manifestations (principal); F17.210 Nicotine dependence, cigarettes, uncomplicated
CPT/HCPCS: 99283

== ENCOUNTER 2022-11-25 13:17 | Emergency (ER) | payer MEDICAID, SELFPAY ==
[2022-11-25 13:35] VITALS: BP 125/75; PULSE 95; RESP 16; TEMP 36.9; O2SAT 96; BMI 48.4
--- NOTE | 2022-11-25 13:57 | W.ED.SKABFB ---
HPI - Skin/Abscess/Foreign Bdy General: Chief complaint: Skin/Abscess/Foreign Body Stated complaint: abdominal infection on skin Time Seen by Provider: 11/25/22 13:51 Source: patient Mode of arrival: ambulatory Limitations: no limitations History of Present Illness: 22-year-old female states she has had erythema around her umbilicus over the last 2 years states it comes and goes states that over the last week it seems to be worsening slight pruritus denies any fever minimal pain denies any drainage. 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 Surgical History S/P laparoscopic cholecystectomy (~04/2019) Family History Denies family history of Anesthesia complication Bleeding disorder Social History Smoking and tobacco status: current every day smoker cigarettes Quit status (tobacco): has tried quititng Second hand smoke exposure: No Alcohol intake: current Alcohol intake frequency: holidays/special occasions only Alcohol type: hard liquor Desire information about alcohol rehabilitation?: No Substance/Drug Use: never Desire information about substance/drug rehabilitation?: No Adopted: No Caregiver/support person: Yes Lives independently: Yes Household members: spouse Housing: House Marital status: Highest education level completed: High School Graduate service: No Current occupational status: employed 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[employer] Current occupational exposures/hazards: No Pets and animals: Yes (outside ) Pets & animals: cat(s) Leisure activites: exercise Sexually active: Yes Do you think of yourself as: Straight/Heterosexual Current gender identity: Female [place]/Hinduism: Baptism Special adelaide needs: No Agree to transfusion: No Financial difficulty paying for basics: Decline to Answer Female Reproductive History: Date of last menstrual period: 11/25/22 Spontaneous abortions: No Physical Exam Const: COMMON NORMALS: no acute distress and patient oriented x3 HENMT: COMMON NORMALS: normocephalic HEAD & SCALP: normocephalic Eye: COMMON NORMALS: conjunctivae normal CONJUNCTIVA: Yes conjunctivae normal Neck/C-Spine: COMMON NORMALS: supple Chest: COMMONS NORMALS: normal inspection of the chest Resp: COMMON NORMALS: normal respiratory effort GI: OTHER: Tenia corporis to the umbilicus n in addition no hernia Extremity: COMMON NORMALS: normal to inspection Neuro: COMMON NORMALS: patient oriented x3 Psych: COMMON NORMALS: mental status grossly normal Skin: COMMON NORMALS: no wounds Course Vital Signs: Vital signs: Vital Signs Temperature 98.5 F 11/25/22 13:35 Pulse Rate 95 11/25/22 13:35 Respiratory Rate 16 11/25/22 13:35 Blood Pressure 125/75 11/25/22 13:35 Pulse Oximetry 96 11/25/22 13:35 Oxygen Delivery Me thod Room Air 11/25/22 13:35 MDM - Skin/Abscess/Foreign Bdy Medicial Decision Making Patient presents here with tenia corporis to umbilicus we will start on clotrimazole patient stable for discharge she is follow-up PCP and return if worsening Discharge Plan Discharge Patient Disposition: Home Clinical Impression: Tinea corporis Condition: Stable Prescriptions: New clotrimazole 1 % cream 1 applic topical BID 14 Days Qty: 30 0RF No Action Tylenol Ex Str Rapid Release 500 mg Tablet 1,000 mg PO Q6H PRN (Reason: Pain) NyQuil Liquicaps Capsule 2 cap PO BEDTIME PRN (Reason: Flu Symptoms) Dayquil Cold And Flu Caps 2 cap PO Q4H PRN (Reason: Flu Symptoms) albuterol sulfate 90 mcg/actuation HFA aerosol inhaler 2 inh INHALATION Q4H PRN (Reason: shortness of breath or wheezing) Qty: 18 0RF Discharge Orders: Discharge ED (Routine); Ordered 11/25/22 Ordered By: Mariela Damico Referrals: Maico Bustos, [Primary Care Provider] - 1-3 days Discharge Diet: Advance as tolerated Discharge Activity: Resume usual activity Patient Instructions: Tinea Corporis (ED) Coding Level of Care Code ED Supervisor Statement Clerks for Kiet Wetzel
[2022-11-25 14:19] LABS: Basophils # 0.1 10^3/uL (0.0-0.1); Basophils % 0.8 %; Eosinophils # 0.1 10^3/uL (0.0-0.8); Hematocrit 39.8 % (37.0-47.0); Hemoglobin 12.7 g/dL (11.5-15.3); Lymphocytes # 2.4 10^3/uL (0.8-4.8); Lymphocytes % 27.6 %; Mean Corpuscular HGB Conc 31.9 g/dL (30.0-36.0); Mean Corpuscular Hemoglobin 25.5 pg (28.0-34.0); Mean Corpuscular Volume 79.8 fl (81-99); Mean Platelet Volume 10.8 fL (7.4-10.4); Monocytes # 0.5 10^3/uL (0.2-0.9); Monocytes % 5.5 %; Neutrophils # 5.69 10^3/uL (1.8-7.7); Neutrophils % 64.8 %; Nucleated Red Blood Cells % 0 %; Platelet Count 409 10^3/cmm (130-400); Red Blood Count 4.99 10^6/uL (4.1-5.3); Red Cell Distribution Width 14.4 % (12.1-15.1); White Blood Count 8.8 10^3/uL (4.0-10.0)
== END 2022-11-25 14:37 | disposition home or self-care (01) ==
PROVIDERS: Emergency Provider Emergency Medicine; PCP Family Medicine
DX: B35.4 Tinea corporis (principal); F17.210 Nicotine dependence, cigarettes, uncomplicated
CPT/HCPCS: 36415; 85025; 99283